=== PATIENT | male | born 1970 | race Caucasian/White ===

== ENCOUNTER 2016-09-20 20:44 | Emergency (ER) | payer BC ==
[2016-09-20 20:52] VITALS: TEMP 98.6
[2016-09-20] MEDS ORDERED: ASPIRIN 81 MG CHEW PO STA (21:27)
--- NOTE | 2016-09-20 21:30 | ED ---
Chest Pain HPI - General Chief Complaint: Chest Pain Stated Complaint: chest discomfort Time Seen by Provider: 09/20/16 21:10 Source: patient Mode of arrival: ambulatory Limitations: no limitations - History of Present Illness Initial Comments: This patient is a 46-year-old man presenting with chest pain as described. The patient states that the pain is been constant and ongoing. It is not exertional , he is able to run and usually goes about 5 miles per day. MD Complaint: chest pain -: week(s) Onset: during rest Pain Location: epigastric Pain Radiation: none Severity: moderate Quality: dull Consistency: constant Improves With: nothing Worsens With: nothing Treatments Prior to Arrival: none - Related Data Home Medications Medication Instructions Recorded Confirmed Atenolol [Tenormin] 12.5 mg PO HS 03/23/16 09/20/16 lamoTRIgine [Lamotrigine] 100 mg PO HS 03/23/16 09/20/16 Previous Rx's Medication Instructions Recorded Famotidine [Pepcid] 20 mg PO DAILY #14 tablet 09/20/16 Allergies Allergy/AdvReac Type Severity Reaction Status Date / Time No Known Allergies Allergy Verified 09/20/16 21:11 Review of Systems ROS Statement: Those systems with pertinent positive or pertinent negative responses have been documented in the HPI. ROS Other: All systems not noted in ROS Statement are negative. Constitutional: Denies: fever, chills Respiratory: Denies: cough Cardiovascular: Reports: chest pain. Denies: palpitations, edema, syncope Gastrointestinal: Denies: abdominal pain, nausea, vomiting, diarrhea Genitourinary: Denies: dysuria, hematuria Musculoskeletal: Denies: back pain Skin: Denies: rash Neurological: Denies: headache, weakness, numbness EKG Findings - EKG Results: EKG: interpreted by AMANDA JIMENEZ, sinus rhythm (Rate 67 bpm), normal axis, normal QRS, normal ST/T, no acute changes Past Medical History Past Medical History: CVA/TIA, GERD/Reflux, Hypertension History of Any Multi-Drug Resistant Organisms: None Reported Past Surgical History: Cholecystectomy Past Anesthesia/Blood Transfusion Reactions: No Reported Reaction Past Psychological History: No Psychological Hx Reported Smoking Status: Never smoker Past Alcohol Use History: Occasional Past Drug Use History: None Reported - Past Family History Mother Family Medical History: No Reported History General Exam Limitations: no limitations General appearance: alert, in no apparent distress Head exam: Present: atraumatic, normocephalic Eye exam: Present: normal appearance. Absent: scleral icterus, conjunctival injection Neck exam: Present: normal inspection, full ROM Respiratory exam: Present: normal lung sounds bilaterally. Absent: respiratory distress, wheezes, rales, rhonchi, stridor Cardiovascular Exam: Present: regular rate, normal rhythm, normal heart sounds. Absent: systolic murmur, diastolic murmur, rubs, gallop GI/Abdominal exam: Present: soft, normal bowel sounds. Absent: distended, tenderness, guarding, rebound, rigid, mass, pulsatile mass, hernia Extremities exam: Present: normal inspection, normal capillary refill. Absent: pedal edema, calf tenderness Back exam: Present: normal inspection. Absent: CVA tenderness (R), CVA tenderness (L) Neurological exam: Present: alert Skin exam: Present: warm, dry, intact, normal color. Absent: rash Course Vital Signs 09/20/16 09/20/16 20:49 22:51 Temperature 98.6 F Pulse Rate 74 80 Respiratory 18 16 Rate Blood Pressure 171/93 160/90 O2 Sat by Pulse 96 98 Oximetry Chest Pain MDM - MDM Discussed appropriate follow-up and further care as well as return parameters. Disposition Clinical Impression: Chest pain, Elevated transaminase level Disposition: HOME SELF-CARE Condition: Good Instructions: Chest Pain (ED) Additional Instructions: As we discussed, follow-up with your doctor regarding the elevated liver tests. Should any of the symptoms we discussed develop return immediately. Prescriptions: Famotidine [Pepcid] 20 mg PO DAILY #14 tablet Referrals: Karolina Valdez DO [REFERRING] - 1-2 days Kel Faulkner MD [STAFF PHYSICIAN] - 1-2 days
[2016-09-20 21:37] LABS: Basophils % (A) 1 %; CH 32.7; Eosinophils # (A) 0.4 k/uL (0-0.7); Eosinophils % (A) 8 %; HCT 45.6 % (39.0-53.0); HDW 2.26; HGB 15.1 gm/dL (13.0-17.5); Luc # (Auto) 0.14; Luc % (Auto) 3; Lymphocytes # (A) 1.5 k/uL (1.0-4.8); Lymphocytes % (A) 32 %; MCHC 33.1 g/dL (31.0-37.0); MCV 96.8 fL (80.0-100.0); Mean Platelet Volume 8.1; Monocytes # (A) 0.4 k/uL (0-1.0); Monocytes % (A) 8 %; Neutrophils # (A) 2.2 k/uL (1.3-7.7); Neutrophils % (A) 48 %; RBC 4.72 m/uL (4.30-5.90); RDW 13.7 % (11.5-15.5); WBC 4.6 k/uL (3.8-10.6); WBC (Perox) 4.13
[2016-09-20 21:41] LABS: ALT 133 U/L (21-72); AST 173 U/L (17-59); Alkaline Phosphatase 145 U/L (38-126); Amylase 100 U/L (30-110); Anion Gap 12 mmol/L; Blood Urea Nitrogen 10 mg/dL (9-20); Calcium 9.5 mg/dL (8.4-10.2); Carbon Dioxide 26 mmol/L (22-30); Chloride 103 mmol/L (98-107); Glucose 99 mg/dL (74-99); Magnesium 1.7 mg/dL (1.6-2.3); Non-African American GFR(MDRD) >60 (>60 ml/min/1.73 sqM); Potassium 3.8 mmol/L (3.5-5.1); Sodium 141 mmol/L (137-145); Total Bilirubin 0.6 mg/dL (0.2-1.3); Total Protein 7.4 g/dL (6.3-8.2)
--- NOTE | 2016-09-20 21:44 | XR ---
EXAMINATION TYPE: XR chest 1V portable DATE OF EXAM: 09/20/2016 9:40 PM COMPARISON: 03/23/2016 HISTORY: Chest pain TECHNIQUE: Single frontal view of the chest is obtained. FINDINGS: Heart and mediastinum are normal. Lungs are clear. Diaphragm is normal. There are no hilar masses. IMPRESSION: Normal chest. No change.
[2016-09-20 21:48] LABS: Creatine Kinase 202 U/L (55-170)
[2016-09-20 21:58] LABS: Prothrombin Time 9.8 sec (9.0-12.0)
[2016-09-20 22:01] LABS: Troponin I <0.012 ng/mL (0.000-0.034)
[2016-09-20 22:53] VITALS: BP 160/90; PULSE 80; RESP 16
[2016-09-21 06:00] LABS: Hepatitis B Surface Ag Index 0.06
[2016-09-21 06:06] LABS: Hepatitis B Core IgM Index 0.04
[2016-09-21 06:18] LABS: Hepatitis C Virus IgG Index 0.02
[2016-09-21 06:19] LABS: Hepatitis C Virus IgG Ab Negative (Negative)
== END 2016-09-20 22:51 | disposition home or self-care (01) ==
LOC: EC 20:44
DX: R07.89 Other chest pain (principal); R74.0 Nonspecific elevation of levels of transaminase and lactic acid dehydrogenase [LDH]; I10 Essential (primary) hypertension; Z79.899 Other long term (current) drug therapy
CPT/HCPCS: 36415; 71010; 80053; 80074; 82150; 82550; 82553; 83690; 83735; 84484; 85025; 85610; 85730; 93005; 99285

== ENCOUNTER 2017-06-15 11:50 | Inpatient (IN) | payer BC ==
[2017-06-15] MEDS ORDERED: SODIUM CHLORIDE 0.9% 1,000 ML IV STA (12:07)
[2017-06-15] MEDS ORDERED: METOCLOPRAMIDE 5 MG/ML 2 ML VIAL IVP STA (12:07)
[2017-06-15] MEDS ORDERED: diphenhydrAMINE 50 MG/ML 1 ML VIAL IVP STA (12:07)
[2017-06-15 12:18] LABS: Glucose,Whole Blood 123 mg/dL (75-99)
--- NOTE | 2017-06-15 12:28 | ED ---
General Adult HPI - General Chief complaint: Headache Stated complaint: headache/ had stroke 5 yrs ago Time Seen by Provider: 06/15/17 12:06 Source: patient, RN notes reviewed Mode of arrival: ambulatory Limitations: no limitations - History of Present Illness Initial comments: 38-year-old male presents for evaluation of headache. Patient complains of gradual onset headache in the bilateral occipital region. Patient does have history of headaches, however he has not had a headache in many years. Previous headache was associated with a CVA. This was approximate 5 years ago. Patient is uncertain what type stroke this was. He does not believe there was a hemorrhagic stroke. He has history of hypertension. States he does use alcohol. Patient denies chest pain or shortness of breath. Denies focal weakness. Headache is dull throbbing in nature. Localized to the occipital region. No changes in vision. No nausea vomiting. - Related Data Home Medications Medication Instructions Recorded Confirmed lamoTRIgine [Lamotrigine] 100 mg PO HS 03/23/16 06/15/17 Allergies Allergy/AdvReac Type Severity Reaction Status Date / Time No Known Allergies Allergy Verified 06/15/17 13:05 Review of Systems ROS Statement: Those systems with pertinent positive or pertinent negative responses have been documented in the HPI. ROS Other: All systems not noted in ROS Statement are negative. Past Medical History Past Medical History: CVA/TIA, GERD/Reflux, Hypertension History of Any Multi-Drug Resistant Organisms: None Reported Past Surgical History: Cholecystectomy Past Anesthesia/Blood Transfusion Reactions: No Reported Reaction Past Psychological History: No Psychological Hx Reported Smoking Status: Never smoker Past Alcohol Use History: Occasional Past Drug Use History: None Reported - Past Family History Mother Family Medical History: No Reported History General Exam Limitations: no limitations General appearance: alert, in no apparent distress Head exam: Present: atraumatic, normocephalic Eye exam: Present: normal appearance, PERRL, EOMI ENT exam: Present: normal exam Neck exam: Present: normal inspection. Absent: tenderness, meningismus Respiratory exam: Present: normal lung sounds bilaterally. Absent: respiratory distress Cardiovascular Exam: Present: regular rate, normal rhythm GI/Abdominal exam: Present: soft. Absent: distended, tenderness Extremities exam: Present: normal inspection, full ROM, normal capillary refill. Absent: pedal edema Neurological exam: Present: alert, CN II-XII intact. Absent: oriented X3 ( Oriented 2), motor sensory deficit Psychiatric exam: Present: normal affect, normal mood Skin exam: Present: warm, dry, intact. Absent: cyanosis, diaphoretic Course Vital Signs 06/15/17 06/15/17 11:56 14:38 Temperature 97.2 F L Pulse Rate 82 79 Respiratory 16 18 Rate Blood Pressure 161/93 117/79 O2 Sat by Pulse 98 98 Oximetry EKG Findings - EKG Comments: EKG Findings:: EKG shows normal sinus rhythm, voltage criteria for LVH, ventricular rate 78, FL interval 170, castration 90, QTC 417, no signs of ischemia Medical Decision Making - Medical Decision Making 46-year-old male presenting with occipital headache. Headache was gradual in onset. Patient reports similar headache associated with CVA approximately 5 years ago. Symptoms began approximately 5 hours prior to arrival. Denies focal weakness. On examination patient has good strength throughout. NIH is 0. no ataxia. Laboratory studies are obtained, white blood cell count 5.1, hemoglobin 14.7, white lites within normal limits, AST and ALT are mildly elevated likely secondary to alcohol abuse, alcohol level is 75. CT shows subcortical acute versus subacute infarction. Case discussed with Dr. Page , he will accept admission. Neurology has been paged awaiting recommendations. Patient given aspirin in the emergency department via started on daily aspirin. Carotid duplex and echo will be obtained. - Lab Data Result diagrams: 06/15/17 12:30 06/15/17 12:30 Lab Results 06/15/17 06/15/17 06/15/17 Range/Units 12:15 12:30 12:30 WBC 5.1 (3.8-10.6) k/uL RBC 4.66 (4.30-5.90) m/uL Hgb 14.7 (13.0-17.5) gm/dL Hct 44.3 (39.0-53.0) % MCV 95.1 (80.0-100.0) fL MCH 31.5 (25.0-35.0) pg MCHC 33.2 (31.0-37.0) g/dL RDW 13.5 (11.5-15.5) % Plt Count 171 (150-450) k/uL Neutrophils % 66 % Lymphocytes % 23 % Monocytes % 7 % Eosinophils % 1 % Basophils % 1 % Neutrophils # 3.4 (1.3-7.7) k/uL Lymphocytes # 1.2 (1.0-4.8) k/uL Monocytes # 0.4 (0-1.0) k/uL Eosinophils # 0.1 (0-0.7) k/uL Basophils # 0.0 (0-0.2) k/uL PT (9.0-12.0) sec INR (<1.2) APTT (22.0-30.0) sec Sodium 140 (137-145) mmol/L Potassium 3.7 (3.5-5.1) mmol/L Chloride 102 (98-107) mmol/L Carbon Dioxide 23 (22-30) mmol/L Anion Gap 15 mmol/L BUN 13 (9-20) mg/dL Creatinine 0.89 (0.66-1.25) mg/dL Est GFR (MDRD) Af Amer >60 (>60 ml/min/1.73 sqM) Est GFR (MDRD) Non-Af >60 (>60 ml/min/1.73 sqM) Glucose 118 H (74-99) mg/dL POC Glucose (mg/dL) 123 H (75-99) mg/dL POC Glu Employer Relations Representative ID Bjorn Shau Calcium 10.0 (8.4-10.2) mg/dL Total Bilirubin 0.7 (0.2-1.3) mg/dL AST 182 H (17-59) U/L ALT 161 H (21-72) U/L Alkaline Phosphatase 106 (38-126) U/L Total Protein 7.7 (6.3-8.2) g/dL Albumin 4.6 (3.5-5.0) g/dL Serum Alcohol 75 mg/dL 06/15/17 Range/Units 12:30 WBC (3.8-10.6) k/uL RBC (4.30-5.90) m/uL Hgb (13.0-17.5) gm/dL Hct (39.0-53.0) % MCV (80.0-100.0) fL MCH (25.0-35.0) pg MCHC (31.0-37.0) g/dL RDW (11.5-15.5) % Plt Count (150-450) k/uL Neutrophils % % Lymphocytes % % Monocytes % % Eosinophils % % Basophils % % Neutrophils # (1.3-7.7) k/uL Lymphocytes # (1.0-4.8) k/uL Monocytes # (0-1.0) k/uL Eosinophils # (0-0.7) k/uL Basophils # (0-0.2) k/uL PT 9.9 (9.0-12.0) sec INR 1.0 (<1.2) APTT 23.3 (22.0-30.0) sec Sodium (137-145) mmol/L Potassium (3.5-5.1) mmol/L Chloride (98-107) mmol/L Carbon Dioxide (22-30) mmol/L Anion Gap mmol/L BUN (9-20) mg/dL Creatinine (0.66-1.25) mg/dL Est GFR (MDRD) Af Amer (>60 ml/min/1.73 sqM) Est GFR (MDRD) Non-Af (>60 ml/min/1.73 sqM) Glucose (74-99) mg/dL POC Glucose (mg/dL) (75-99) mg/dL POC Glu Employer Relations Representative ID Calcium (8.4-10.2) mg/dL Total Bilirubin (0.2-1.3) mg/dL AST (17-59) U/L ALT (21-72) U/L Alkaline Phosphatase (38-126) U/L Total Protein (6.3-8.2) g/dL Albumin (3.5-5.0) g/dL Serum Alcohol mg/dL Critical Care Time Critical Care Time: Yes Total Critical Care Time: 35 Disposition Clinical Impression: Headache, CVA (cerebral vascular accident) Disposition: ADMITTED IP TO THIS [facility] Condition: Stable Referrals: None,Stated [Primary Care Provider] - 1-2 days Decision to Admit Reason: Admit from EC Decision Date: 06/15/17 Decision Time: 14:47
[2017-06-15 12:51] LABS: Basophils % (A) 1 %; Eosinophils # (A) 0.1 k/uL (0-0.7); Eosinophils % (A) 1 %; HCT 44.3 % (39.0-53.0); HGB 14.7 gm/dL (13.0-17.5); Lymphocytes # (A) 1.2 k/uL (1.0-4.8); Lymphocytes % (A) 23 %; MCH 31.5 pg (25.0-35.0); MCHC 33.2 g/dL (31.0-37.0); MCV 95.1 fL (80.0-100.0); Mean Platelet Volume 8.5; Monocytes # (A) 0.4 k/uL (0-1.0); Monocytes % (A) 7 %; Neutrophils # (A) 3.4 k/uL (1.3-7.7); Neutrophils % (A) 66 %; Platelet Count 171 k/uL (150-450); RBC 4.66 m/uL (4.30-5.90); RDW 13.5 % (11.5-15.5); WBC 5.1 k/uL (3.8-10.6)
--- NOTE | 2017-06-15 12:59 | CT ---
EXAMINATION TYPE: CT brain wo con DATE OF EXAM: 06/15/2017 COMPARISON: MRI brain 06/24/2011 INDICATION: Right sided posterior headache today. history of CVA DLP: 1108.4 mGycm, Automated exposure control for dose reduction was used. CONTRAST: None CT of the brain is performed utilizing 3 mm thick sections through the posterior fossa and 3 mm thick sections through the remaining calvarium. Study is performed within 24 hours of arrival to the hosp ital. No abnormal hyperdensity is present to suggest an acute intracranial hemorrhage. No mass lesion is evident. No acute infarcts are evident. There are scattered areas of subcortical white matter hypodensity. Thi s could be on the basis of microvascular ischemic changes. Other etiologies should be considered. Thi s is more focal in the left parietal-occipital region. Consider MRI with contrast for additional eval uation. Ventricles and sulci are appropriate for the patient age. Paranasal sinuses and mastoid air cells within the [id number] are clear. In comparison to the previous MRI, the white matter changes are in new locations from 2012. IMPRESSIONS: 1. Subcortical white matter changes which are nonspecific. Acute or subacute ischemic areas could b e considered. Chronic white matter ischemic change be within the differential. Consider MRI for addit ional evaluation.
[2017-06-15 13:02] LABS: Partial Thromboplastin Time 23.3 sec (22.0-30.0); Prothrombin Time 9.9 sec (9.0-12.0)
[2017-06-15 13:04] LABS: ALT 161 U/L (21-72); AST 182 U/L (17-59); Albumin 4.6 g/dL (3.5-5.0); Alcohol 75 mg/dL; Alkaline Phosphatase 106 U/L (38-126); Anion Gap 15 mmol/L; Blood Urea Nitrogen 13 mg/dL (9-20); Carbon Dioxide 23 mmol/L (22-30); Chloride 102 mmol/L (98-107); Glucose 118 mg/dL (74-99); Potassium 3.7 mmol/L (3.5-5.1); Sodium 140 mmol/L (137-145); Total Bilirubin 0.7 mg/dL (0.2-1.3); Total Protein 7.7 g/dL (6.3-8.2)
[2017-06-15] MEDS ORDERED: ASPIRIN 325 MG TAB PO STA (13:36)
[2017-06-15] MEDS ORDERED: THIAMINE 100 MG/ML 2 ML VIAL IM STA (14:36)
[2017-06-15] MEDS ORDERED: LORazepam 2 MG/ML INJ IV PRN ×3 (14:36)
--- NOTE | 2017-06-15 15:58 | US ---
EXAMINATION TYPE: US carotid duplex BILAT DATE OF EXAM: 06/15/2017 COMPARISON: NONE CLINICAL HISTORY: Stenosis. Patient stated has severe headache and is going through alcohol withdrawa l;TIA 5 years prior per patient. EXAM MEASUREMENTS: RIGHT: Peak Systolic Velocity (PSV) cm/sec ----- Right CCA: 82.3 ----- Right ICA: 80.9 ----- Right ECA: 97.3 ICA/CCA ratio: 1.0 RIGHT: End Diastole cm/sec ----- Right CCA: 20.2 ----- Right ICA: 17.1 ----- Right ECA: 18.0 LEFT: Peak Systolic Velocity (PSV) cm/sec ----- Left CCA: 66.8 ----- Left ICA: 45.9 ----- Left ECA: 69.6 ICA/CCA ratio: 0.7 LEFT: End Diastole cm/sec ----- Left CCA: 11.0 ----- Left ICA: 0.0 ----- Left ECA: 8.7 VERTEBRALS (direction of flow): Right Vertebral: Antegrade Left Vertebral: Antegrade Rhythm: Normal Mild to moderate wall plaque is noted at bilateral carotid bifurcation with Right side > Left side, b ut PSV is wnl bilaterally. IMPRESSION: 1. Mild to moderate plaque noted bilaterally with no significant hemodynamic stenosis.
--- NOTE | 2017-06-15 16:31 | MR ---
EXAMINATION TYPE: MR brain wo con DATE OF EXAM: 06/15/2017 COMPARISON: CT brain same date, MRI brain 01/05/2011 HISTORY: Headache, hx stroke CONTRAST: Performed utilizing 0 mL intravenous Gadavist gadolinium contrast. TECHNIQUE: Multiplanar, multiecho imaging on a 3.0 Neva magnet is performed through the brain. Stud y is performed within 24 hours of arrival to the hospital. The craniovertebral junction is normal. The pituitary is normal. Diffusion-weighted imaging is performed. No abnormal hyperintensity is present to suggest an acute i ntracranial infarct or acute ischemic change. There is hyperintensity within the subcortical white matter corresponding to the CT findings. No hype rintensities evident on the diffusion weighted imaging in this location suggesting this is old. There are multiple additional punctate subcortical white matter changes. Differential diagnosis should inc lude multiple sclerosis within the differential. Lyme disease and vasculitis could be considered. Fi ndings are somewhat progressive from 2010. Ventricles and sulci are appropriate for the patient age. IMPRESSIONS: 1. Extensive punctate and small focal areas of hyperintensity in the subcortical white matter without corresponding acute changes on diffusion are chronic. This is somewhat progressive from 2010. Differ ential diagnosis could include microvascular ischemic change and multiple sclerosis. Other etiologies would include Lyme disease and vasculitis. 2. No acute focal ischemic area is identified. 3. The focal subcortical white matter change in the left parietal-occipital region corresponds to the abnormality identified on CT examination and appears chronic.
--- NOTE | 2017-06-15 17:24 | ECHOF ---
Referral Reason:Thrombus MEASUREMENTS -------- HEIGHT: 180.3 cm WEIGHT: 81.6 kg BP: 117/79 RVIDd: 3.1 cm (< 3.3) IVSd: 1.1 cm (0.6 - 1.1) LVIDd: 4.8 cm (3.9 - 5.3) LVPWd: 1.3 cm (0.6 - 1.1) IVSs: 1.6 cm LVIDs: 3.2 cm LVPWs: 1.7 cm LAESV Index (A-L): 24.89 ml/m Ao Diam: 3.6 cm (2.0 - 3.7) AV Cusp: 1.6 cm (1.5 - 2.6) LA Diam: 2.9 cm (2.7 - 3.8) MV EXCURSION: 18.221 mm (> 18.000) MV EF SLOPE: 111 mm/s (70 - 150) EPSS: 0.5 cm MV E Nirav: 0.78 m/s MV DecT: 200 ms MV A Nirav: 0.55 m/s MV E/A Ratio: 1.41 RAP: 5.00 mmHg RVSP: 12.14 mmHg FINDINGS -------- Sinus rhythm. This was a technically adequate study. The left ventricular size is normal. Left ventricular wall thickness is normal. Overall left vent ricular systolic function is normal with, an EF between 60 - 65 %. The right ventricle is normal in size and function. Normal LA size by volume 22+/-6 ml/m2. The right atrium is normal in size. Aortic valve is trileaflet and is mildly thickened. There is no evidence of aortic regurgitation. There is no evidence of aortic stenosis. The mitral valve leaflets are mildly thickened. There is trace mitral regurgitation. Trace tricuspid regurgitation present. Right ventricular systolic pressure is normal at < 35 mmHg. There is no evidence of pulmonary hypertension. Trace/mild (physiologic) pulmonic regurgitation. The aortic root size is normal. Normal inferior vena cava with normal inspiratory collapse consistent with estimated right atrial pre ssure of 5 mmHg. The pericardium is normal. There is no pericardial effusion. CONCLUSIONS -------- 1. Sinus rhythm. 2. This was a technically adequate study. 3. The left ventricular size is normal. 4. Left ventricular wall thickness is normal. 5. Overall left ventricular systolic function is normal with, an EF between 60 - 65 %. 6. Normal LA size by volume 22+/-6 ml/m2. 7. Aortic valve is trileaflet and is mildly thickened. 8. The mitral valve leaflets are mildly thickened. 9. There is trace mitral regurgitation. 10. Trace tricuspid regurgitation present. 11. Right ventricular systolic pressure is normal at < 35 mmHg. 12. There is no evidence of pulmonary hypertension. 13. Trace/mild (physiologic) pulmonic regurgitation. 14. The aortic root size is normal. 15. There is no pericardial effusion. AUTOMATIC VULCANIZING OPERATOR: Tam Gonzalez RDCS
[2017-06-15] MEDS: THIAMINE 100 MG TAB PO SCH (18:12)
--- NOTE | 2017-06-15 19:04 | P.CNNES ---
History of Present Illness Consult date: 06/15/17 Reason for Consult: Patient being evaluated for acute versus subacute stroke. History of Present Illness: This patient is a 46-year-old right-handed white male who was in his usual state of health until early today. He was at work at [employer] and developed symptoms of headache and just not feeling well. 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 Patient has a history of having suffered a stroke about 5 years ago. His stroke began similarly with symptoms of headache. He is unable to provide details of his previous stroke 5 years ago but states he did have a headache at the time. Patient was brought into the emergency room for further evaluation today. He was seen in the ER by Dr. Hedrick. He denied any focal weakness but does describe a posterior occipital area headache that was kind of throbbing in nature. The patient denied any fever or chills. He was sent for a computed tomography scan of the brain which reveals subcortical white matter changes. There was an area of acute versus subacute ischemic area noted over the left parieto-occipital region. Given this finding there was concern for new or recurrent stroke. It was recommended he should have an MRI of the brain done as soon as possible from the ER. The patient was sent for MRI which was completed. The MRI failed to reveal any evidence of acute stroke on diffusion- weighted imaging. Extensive white matter changes were noted. This is felt to be microvascular ischemic changes. No evidence of acute or focal ischemia was identified. The focal subcortical white matter changes over the left parieto- occipital region appear to be chronic in nature. Patient denies any symptoms of demyelinating disease such as diplopia paresthesias or recurrent weakness. As noted his MRI just revealed severe white matter ischemic changes. We have recommended the patient undergo a complete stroke evaluation. Apparently he does have stroke risk factors which include hypercholesterolemia and alcohol use. The patient has a history of alcohol abuse. Apparently his alcohol level in the ER was 75. He has been started on a CIWA protocol. The patient does have mild symptoms of anxiety related to his alcohol use. We will need to monitor him closely for alcohol withdrawal. The patient is now admitted and neurology has been consulted for further evaluation and recommendations. Review of Systems Constitutional: Denies chills, Denies fever Eyes: denies blurred vision, denies pain Ears, nose, mouth and throat: Denies headache, Denies sore throat Cardiovascular: Denies chest pain, Denies shortness of breath Respiratory: Denies cough Gastrointestinal: Denies abdominal pain, Denies diarrhea, Denies nausea, Denies vomiting Musculoskeletal: Denies myalgias Integumentary: Denies pruritus, Denies rash Neurological: Reports headaches, Reports paresthesias, Denies numbness, Denies weakness Psychiatric: Denies anxiety, Denies depression Endocrine: Denies fatigue, Denies weight change Past Medical History Past Medical History: CVA/TIA, GERD/Reflux, Hypertension History of Any Multi-Drug Resistant Organisms: None Reported Past Surgical History: Cholecystectomy Past Anesthesia/Blood Transfusion Reactions: No Reported Reaction Past Psychological History: No Psychological Hx Reported Smoking Status: Never smoker Past Alcohol Use History: Occasional Past Drug Use History: None Reported - Past Family History Mother Family Medical History: No Reported History Medications and Allergies Home Medications Medication Instructions Recorded Confirmed Type lamoTRIgine [Lamotrigine] 100 mg PO HS 03/23/16 06/15/17 History Allergies Allergy/AdvReac Type Severity Reaction Status Date / Time No Known Allergies Allergy Verified 06/15/17 13:05 Physical Examination - Vital Signs Vital Signs: Vital Signs Temp Pulse Pulse Resp BP BP Pulse Ox 06/15/17 16:56 97.7 F 68 20 140/80 98 06/15/17 16:54 98.2 F 79 18 134/69 06/15/17 14:38 79 18 117/79 98 06/15/17 11:56 97.2 F L 82 16 161/93 98 Intake and Output 06/15/17 06/15/17 06/15/17 06:59 14:59 22:59 Other: Weight 81.647 kg Patient Weight 06/16/17 06:59 Weight 81.647 kg - Constitutional General appearance: average body habitus, cooperative - EENT EENT: PERRL, mucous membranes moist - Respiratory Respiratory: lungs clear, normal breath sounds - Cardiovascular Cardiovascular: regular rate, normal S1, normal S2 Extremities: no peripheral edema bilaterally - Gastrointestinal Gastrointestinal: normoactive bowel sounds - Integumentary Integumentary: normal - Neurologic Cranial nerve examination: PERRL, EOMI, VFF, V1/V2/V3 grossly intact, face symmetric, tongue midline, intact gag reflex, intact corneal reflex, normal palatal elevation Speech examination: intact Sensorimotor examination: intact Detailed motor examination: grossly full strength in all extremities Motor examination - right side: 4/5: biceps, triceps, wrist flexion, wrist extension, 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, hip flexors, knee extensors, dorsiflexion, toe extension (EHL) , plantarflexion Motor examination - left side: 4/5: biceps, triceps, wrist flexion, wrist extension, 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, hip flexors, knee extensors, dorsiflexion, toe extension (EHL) , plantarflexion Detailed sensory examination: intact Reflex and gait examination: intact Reflexes: 1+: ankle, bicep, knee, tricep - Musculoskeletal Musculoskeletal: no pain - Psychiatric Psychiatric: mood/affect appropriate, cooperative Results - Laboratory Findings CBC and BMP: 06/15/17 12:30 06/15/17 12:30 Abnormal Lab Findings: Abnormal Labs 06/15/17 06/15/17 12:15 12:30 Glucose 118 H POC Glucose (mg/dL) 123 H AST 182 H ALT 161 H Assessment and Plan (1) CVA (cerebral vascular accident) Current Visit: Yes Status: Acute Code(s): I63.9 - CEREBRAL INFARCTION, UNSPECIFIED SNOMED Code(s): 709984308 (2) Encephalopathy Current Visit: Yes Status: Acute Code(s): G93.40 - ENCEPHALOPATHY, UNSPECIFIED SNOMED Code(s): 79158990 (3) Headache Current Visit: Yes Status: Acute Code(s): R51 - HEADACHE SNOMED Code(s): 01444363 (4) Alcohol abuse Current Visit: Yes Status: Acute Code(s): F10.10 - ALCOHOL ABUSE, UNCOMPLICATED SNOMED Code(s): 71233078 Plan: This patient is a 46-year-old male admitted to Hospital with symptoms of headache and previous history of stroke 5 years ago. He was at work at [employer] and just did not feel well. He was brought into the emergency room at [facility] and was seen by Dr. Hedrick. He was sent for a computed tomography scan of the brain which revealed a acute versus subacute area of ischemia involving the left parieto-occipital lobe. He was recommended admission for her. Stroke evaluation. He completed his MRI of the brain today the results which are noted above. There is no evidence for acute focal ischemia on diffusion-weighted imaging. The patient is to undergo full stroke evaluation. We would recommend that he should be placed on aspirin 325 mg daily for secondary stroke prevention. He has a history of alcohol abuse as his alcohol level was elevated at 75 on admission. He is to be placed on a [facility] protocol for further management of alcohol withdrawal. We would recommend to check his serum cholesterol level. Apparently it has been elevated in the past. Recommend PTOT and speech therapy evaluation. We would await the results of his stroke workup and further recommendations will be given at that time. His overall prognosis at this time remains very guarded. Time with Patient: Greater than 30
[2017-06-15] MEDS: lamoTRIgine 100 MG TAB PO SCH (22:01)
[2017-06-16] MEDS: SODIUM CHLORIDE 0.9% 1,000 ML IV SCH ×2 (00:35→13:00)
--- NOTE | 2017-06-16 04:26 | HP ---
HISTORY AND PHYSICAL CHIEF COMPLAINT: A 46-year-old white male with posterior cervical headache versus stroke. HISTORY OF PRESENT ILLNESS: This 46-year-old came in with headache in the back of his head, similar to prior stroke he had 5 years ago. He came to the hospital due to severe significant headache in the back of his head. MRI was ordered. Carotid neck was ordered. MRI shows no acute stroke, but microvascular ischemic changes. Carotid and echo have been ordered. REVIEW OF SYSTEMS: Fourteen-point review of systems negative except for as mentioned in HPI. PAST MEDICAL HISTORY: CVA, TIA, GERD reflux, hypertension. SURGICAL HISTORY: Cholecystectomy. FAMILY HISTORY: Mother negative. HOME MEDICATIONS: Lamictal 100 q.h.s. ALLERGIES: Negative. PHYSICAL EXAMINATION: Blood pressure is 117 to 160s over 60s to 90s, temp 97 to 98, pulse 60s to 70s, O2 of 98%. CARDIOVASCULAR: S1, S2. LUNGS: Transmitted upper airway sounds. GI: Soft. HEMATOLOGY: Negative Homans. PSYCH: Fair mood and affect. OPHTHALMOLOGICAL: Pupils equal, round, react to light and accommodation. NEUROLOGIC: Alert and orient x3. LABS: MRI and echo are appreciated. Neurology consult is appreciated. ASSESSMENT: 1. Cerebrovascular accident until ruled out. 2. Encephalopathy. 3. Headache. 4. Alcohol abuse. Aspirin 325 daily. Alcohol abuse, alcohol withdrawal, [place] protocol. PT, OT, speech evaluation. Prognosis guarded. Awaiting cardiology and Neurology to come up with a treatment plan for the patient. MMODL / IJN: [id number] /
[2017-06-16] MEDS: ASPIRIN 325 MG TAB PO SCH (09:06)
[2017-06-16] MEDS: THIAMINE 100 MG TAB PO SCH ×2 (09:06→17:35)
[2017-06-16 13:04] VITALS: RESP 16
[2017-06-16 15:31] LABS: Hemoglobin A1C 5.4 % (4.0-6.0)
--- NOTE | 2017-06-16 16:40 | P.PN ---
Subjective Progress Note Date: 06/16/17 This patient is a 46-year-old male who was admitted hospital with evidence of headache and previous history of stroke 5 years ago. He was seen in the emergency room and underwent a computed tomography scan of the brain which revealed questionable subacute versus acute stroke. He is a plan when MRI of the brain which failed to reveal any evidence of acute stroke and was completed yesterday. He underwent a carotid Doppler study today which came back negative with no evidence of carotid artery stenosis. His echocardiogram results also came back good with an ejection fraction of 60-65%. Patient is being treated for alcohol withdrawal syndrome. He is currently on a CIWA protocol. He is to continue on aspirin daily for secondary stroke prevention. We did review all of this test results with him today in detail. The patient has responded well to the CIWA protocol. He is not showing any signs of alcohol withdrawal at this time. He is resting comfortably in bed this afternoon. He is anticipating possible discharge home tomorrow. Would increase his activity and hopefully will be able to be discharged home soon. Objective - Vital Signs Vital signs: Vital Signs Temp 98.5 F 06/16/17 12:00 Pulse 76 06/16/17 12:00 Resp 16 06/16/17 12:00 BP 131/78 06/16/17 12:00 Pulse Ox 96 06/16/17 12:00 Intake & Output 06/15/17 06/16/17 06/16/17 18:59 06:59 18:59 Intake Total 420 Output Total 0 Balance 420 Weight 81.647 kg 83.7 kg Intake: Oral 420 Output: Urine 0 Other: Voiding Method Toilet Toilet Toilet # Voids 2 - Exam Physical examination: PHYSICAL EXAMINATION: Patient is resting comfortably in bed. VITAL SIGNS: Blood pressure is [131/78]. Heart rate is [76]. Respiration is [16] . Temperature is [98.5]. HEENT: Head is atraumatic, neck is supple, there were no carotid bruits. CHEST: Lungs are clear to auscultation and percussion. CARDIAC: S1, S2 normal rate and rhythm. There is no murmur. ABDOMEN: Soft and nontender. Bowel sounds are present. EXTREMITIES: There is no pedal edema. Peripheral pulses are present. Neurological examination: Patient has a nonfocal neurological exam. Patient has no evidence of tremors or signs of alcohol withdrawal today on exam. - Labs CBC & Chem 7: 06/15/17 12:30 06/15/17 12:30 Labs: Abnormal Lab Results - Last 24 Hours (Table) 06/16/17 Range/Units 05:28 Cholesterol 236 H (<200) mg/dL HDL Cholesterol 126 H (40-60) mg/dL Assessment and Plan (1) CVA (cerebral vascular accident) Current Visit: Yes Status: Acute Code(s): I63.9 - CEREBRAL INFARCTION, UNSPECIFIED SNOMED Code(s): 441986986 (2) Encephalopathy Current Visit: Yes Status: Acute Code(s): G93.40 - ENCEPHALOPATHY, UNSPECIFIED SNOMED Code(s): 49268974 (3) Headache Current Visit: Yes Status: Acute Code(s): R51 - HEADACHE SNOMED Code(s): 06082496 (4) Alcohol abuse Current Visit: Yes Status: Acute Code(s): F10.10 - ALCOHOL ABUSE, UNCOMPLICATED SNOMED Code(s): 52928514 Plan: This patient is a 46-year-old male admitted to Hospital with symptoms of headache and previous history of stroke 5 years ago. He was at work at [employer] and just did not feel well. He was brought into the emergency room at [facility] and was seen by Dr. Hedrick. He was sent for a computed tomography scan of the brain which revealed a acute versus subacute area of ischemia involving the left parieto-occipital lobe. He was recommended admission for stroke evaluation. He completed his MRI of the brain yesterday the results which are noted above. His MRI failed to reveal any evidence of acute stroke. There is evidence of old residual changes. There is no evidence for acute focal ischemia on diffusion-weighted imaging. The patient is to undergo full stroke evaluation. We would recommend that he should be placed on aspirin 325 mg daily for secondary stroke prevention. He has a history of alcohol abuse as his alcohol level was elevated at 75 on admission. He is to be placed on a [facility] protocol for further management of alcohol withdrawal. He has responded well to this CIWA protocol. He has had no evidence of alcohol withdrawal at this time. Recommend PT/OT and speech therapy evaluation. Patient underwent carotid Doppler and echocardiogram studies today. Both of these studies have come back normal. He is to continue on aspirin therapy at this time and possibly be considered for discharge home tomorrow. We will continue close neurological follow-up with the patient.
[2017-06-16] MEDS: ATENOLOL 12.5 MG TAB PO SCH (19:39)
[2017-06-16] MEDS: lamoTRIgine 100 MG TAB PO SCH (19:39)
--- NOTE | 2017-06-16 22:33 | PN ---
PROGRESS NOTE CHIEF COMPLAINT: 46-year-old white male was admitted with headache and previous stroke 5 years ago. MRI did not show any stroke. Echo showed no good ejection fraction. He is being treated for alcohol withdrawal. He is on CIID protocol. Possible discharge home tomorrow. Cardiovascular S1, S2. Lungs clear. GI soft. Hematology negative Homans. Psych: Far mood and affect. ASSESSMENT: 1. Alcohol withdrawal. 2. Cephalgia, headache, unclear etiology, possible alcohol withdrawal related. 3. Stroke was ruled. 4. Discharge home in the morning. MMODL / IJN: [id number] /
[2017-06-17] MEDS: THIAMINE 100 MG TAB PO SCH (09:02)
[2017-06-17] MEDS: ASPIRIN 325 MG TAB PO SCH (09:02)
[2017-06-17] MEDS: ATENOLOL 12.5 MG TAB PO SCH (09:02)
[2017-06-17 09:53] VITALS: BP 142/82; PULSE 81; TEMP 98.6
--- NOTE | 2017-06-17 23:19 | EEG ---
ELECTROENCEPHALOGRAM REPORT DATE OF EE06/16/2017. REFERRING PHYSICIAN: Dr. Ameya Page. INTERPRETING PHYSICIAN: Dr. Carmenza Wall. INDICATION FOR EXAMINATION: This patient is a 46-year-old male being evaluated for TIA versus stroke. AGE: 46. EEG FINDINGS: A routine 21-channel awake digital EEG recording was accomplished utilizing the 10-20 international system with bipolar and referential montages. The background activity in the most alert resting state consists of a low to medium amplitude, fairly well- developed well-sustained 8 Hz activity over the posterior head region. This posterior rhythm attenuates to eye opening. There is a small amount of low amplitude 18-20 Hz beta activity seen maximally over the anterior head regions. Muscle and movement artifact was observed on a few occasions during the tracing. Hyperventilation was not performed. Photic stimulation at flash frequencies of 2-30 Hz produced a minimal occipital driving response. No epileptiform discharges were seen. IMPRESSION: This EEG is within normal limits for the patient's age. The EEG failed to reveal any focal, lateralized or epileptiform abnormalities. Clinical correlation is recommended. MMODL / IJN: [id number] /
--- NOTE | 2017-07-05 08:43 | DS ---
DISCHARGE SUMMARY DATE OF ADMISSION: 06/15/2017. DATE OF DISCHARGE: 06/17/2017. DISCHARGE MEDICATIONS: 1. Lamictal 100 mg q.h.s. 2. Atorvastatin 10 mg daily. CONDITION: Stable. PROGNOSIS: Guarded. Ambulate as tolerated. The patient was admitted for possible seizure. He had a headache, a history of a stroke 5 years ago. MRI was done which showed no significant injury to the brain, history with alcohol withdrawal symptoms. [facility] protocol. He is cleared by Neurology for discharge to follow up as an outpatient. MMODL / IJN: [id number] /
== END 2017-06-17 12:02 | disposition home or self-care (01) | DRG 103 ==
LOC: EC 11:50 → 6SEL 14:39
PROVIDERS: ADMIT Family Medicine; ATTEND Family Medicine
DX: R51 Headache (principal); E78.00 Pure hypercholesterolemia, unspecified; F10.239 Alcohol dependence with withdrawal, unspecified; I10 Essential (primary) hypertension; K21.9 Gastro-esophageal reflux disease without esophagitis; Z86.73 Personal history of transient ischemic attack (TIA), and cerebral infarction without residual deficits; Z79.899 Other long term (current) drug therapy; Z90.49 Acquired absence of other specified parts of digestive tract
CPT/HCPCS: 36415; 70450; 70551; 80053; 80061; 80320; 83036; 84443; 85025; 85610; 85730; 93005; 93306; 93880; 95819; 96361; 96374; 96375; 99285

== ENCOUNTER 2017-08-25 15:59 | Emergency (ER) | payer BC ==
[2017-08-25 16:08] VITALS: BP 159/82; PULSE 71; RESP 18; TEMP 98.7
--- NOTE | 2017-08-25 16:57 | ED ---
General Adult HPI - General Chief complaint: Alcohol Stated complaint: Withdrawls Time Seen by Provider: 08/25/17 16:43 Source: patient, RN notes reviewed Mode of arrival: ambulatory Limitations: no limitations - History of Present Illness Initial comments: Patient is a pleasant 47-year-old male presenting to the emergency department with concerns for alcohol problems. Patient does drink alcohol frequently. Patient stopped drinking yesterday however did have one drink around 1:00 today to help with shaking and withdrawal. Patient did try to stop drinking once previously for 3 days and then started up again. Patient does not feel too shaky at this time. No suicidal or homicidal thoughts. No other concerns. - Related Data Home Medications Medication Instructions Recorded Confirmed lamoTRIgine [Lamotrigine] 100 mg PO HS 03/23/16 06/15/17 Atorvastatin [Lipitor] 10 mg PO DAILY 06/17/17 06/17/17 Previous Rx's Medication Instructions Recorded LORazepam [Ativan] 1 mg PO TID PRN #8 tab 08/25/17 Allergies Allergy/AdvReac Type Severity Reaction Status Date / Time No Known Allergies Allergy Verified 08/25/17 16:50 Review of Systems ROS Statement: Those systems with pertinent positive or pertinent negative responses have been documented in the HPI. Constitutional: Denies: fever Eyes: Denies: eye pain ENT: Denies: throat pain Respiratory: Denies: cough Cardiovascular: Denies: chest pain Endocrine: Denies: fatigue Gastrointestinal: Denies: abdominal pain Genitourinary: Denies: dysuria Musculoskeletal: Denies: back pain Skin: Denies: rash Neurological: Denies: weakness Past Medical History Past Medical History: CVA/TIA, GERD/Reflux, Hypertension Additional Past Medical History / Comment(s): stroke 5 years ago, short term memory loss, tremors History of Any Multi-Drug Resistant Organisms: None Reported Past Surgical History: Cholecystectomy Past Anesthesia/Blood Transfusion Reactions: No Reported Reaction Past Psychological History: No Psychological Hx Reported Smoking Status: Never smoker Past Alcohol Use History: Abuse, Daily, Heavy - Past Family History Mother Family Medical History: No Reported History Additional Family Medical History / Comment(s): healthy Father Family Medical History: CVA/TIA Additional Family Medical History / Comment(s): age 55 from stroke General Exam Limitations: no limitations General appearance: alert, in no apparent distress Head exam: Present: atraumatic, normocephalic Eye exam: Present: normal appearance, PERRL, EOMI. Absent: nystagmus ENT exam: Present: normal oropharynx Neck exam: Present: normal inspection Respiratory exam: Present: normal lung sounds bilaterally Cardiovascular Exam: Present: regular rate, normal rhythm Extremities exam: Present: normal inspection Neurological exam: Present: alert Psychiatric exam: Present: normal affect, normal mood Skin exam: Present: normal color Course Vital Signs 08/25/17 16:04 Temperature 98.7 F Pulse Rate 71 Respiratory 18 Rate Blood Pressure 159/82 O2 Sat by Pulse 99 Oximetry Disposition Clinical Impression: Alcohol withdrawal Disposition: HOME SELF-CARE Condition: Stable Instructions: Alcohol Withdrawal (ED) Additional Instructions: Please follow-up with primary care physician in the next day or 2 for recheck. Return for change in mental status, seizures, worsening or changing symptoms or other concerns. Discontinue alcohol use. Please follow-up with alcohol withdrawal facility or alcoholic anonymous or counselor, list provided. Prescriptions: LORazepam [Ativan] 1 mg PO TID PRN #8 tab PRN Reason: Anxiety Referrals: Ameya Page MD [Primary Care Provider] - 1-2 days Time of Disposition: 16:57
== END 2017-08-25 17:06 | disposition home or self-care (01) ==
LOC: EC 15:59
DX: F10.239 Alcohol dependence with withdrawal, unspecified (principal); Z79.899 Other long term (current) drug therapy
CPT/HCPCS: 99284

== ENCOUNTER → 2020-11-14 | Outpatient (CLI) | payer BC ==
--- NOTE | 2020-11-14 11:38 | ECHOF ---
Referral Reason:Chest pain R07.9 MEASUREMENTS -------- HEIGHT: 180.3 cm WEIGHT: 72.6 kg BP: RVIDd: 2.5 cm (< 3.3) IVSd: 0.9 cm (0.6 - 1.1) LVIDd: 3.9 cm (3.9 - 5.3) LVPWd: 1.1 cm (0.6 - 1.1) IVSs: 1.7 cm LVIDs: 3.1 cm LVPWs: 1.4 cm LAESV Index (A-L): 24.23 ml/m Ao Diam: 3.2 cm (2.0 - 3.7) AV Cusp: 2.3 cm (1.5 - 2.6) LA Diam: 2.7 cm (2.7 - 3.8) MV EXCURSION: 23.948 mm (> 18.000) MV EF SLOPE: 171 mm/s (70 - 150) EPSS: 0.2 cm MV E Nirav: 0.62 m/s MV DecT: 196 ms MV A Nirav: 0.86 m/s MV E/A Ratio: 0.71 RAP: 5.00 mmHg RVSP: 18.96 mmHg FINDINGS -------- This was a technically good study. The left ventricular size is normal. Left ventricular wall thickness is normal. Overall left vent ricular systolic function is normal with, an EF between 55 - 60 %. The diastolic filling pattern is normal for the age of the patient 7.99. The right ventricle is normal in size. The left atrial size is normal. Normal LA size by volume 22+/-6 ml/m2. The right atrial size is normal. Interatrial and interventricular septum intact. The aortic valve is trileaflet and appears structurally normal. The mitral valve is normal. There is trace mitral regurgitation. The tricuspid valve appears structurally normal. Trace tricuspid regurgitation present. Right rehana tricular systolic pressure is normal at < 35 mmHg. There is no pulmonic regurgitation present. The aortic root size is normal. Normal inferior vena cava with normal inspiratory collapse consistent with estimated right atrial pre ssure of 5 mmHg. There is no pericardial effusion. CONCLUSIONS -------- 1. The left ventricular size is normal. 2. Left ventricular wall thickness is normal. 3. Overall left ventricular systolic function is normal with, an EF between 55 - 60 %. 4. The diastolic filling pattern is normal for the age of the patient 7.99 5. There is trace mitral regurgitation. 6. Trace tricuspid regurgitation present. 7. There is no pericardial effusion. VALVE REPAIRER RECLAMATION: Rhonda Bucio RDCS
--- NOTE | 2020-11-14 15:31 | EST ---
EXERCISE STRESS AGE: 50 SEX: M HT: 5'11" WT: 160 lbs PROTOCOL: Emmanuel STAGE: 6 DURATION OF EXERCISE: 16:00 HEART RATE REST: 59 BLOOD PRESSURE REST: 127/86 MAXIMUM HEART RATE ACHIEVED: 170 MAXIMUM BLOOD PRESSURE: 200/60 85% MPHR: 143 100% MPHR: 168 METS: 16.1 INDICATIONS: Chest pain DATE OF SERVICE: 11/14/2020 PROCEDURE: EKG of exercise Cardiolite. STRESS DATA: Heart rate is 59, pressure is 127/86 mmHg. Baseline EKG showed sinus mechanism. The patient exercised on the treadmill according to Emmanuel protocol for a total of 16 minutes and achieved 16.1 METS. Max heart rate was 170 which is about 100% of maximum predicted heart rate and maximum blood pressure was 200/60 mmHg. Clinically, the patient did not have any symptoms and the EKG did not show any significant ST or T-wave abnormalities concerning for ischemia. CONCLUSION: 1. Excellent exercise tolerance. 2. Normal EKG in response to exercise. 3. Please follow up on the Cardiolite portion on a separate report from the Radiology Department. MMODL / IJN: [id number] /
--- NOTE | 2020-11-14 17:56 | NM ---
EXAMINATION TYPE: NM stress cardiolite complete DATE OF EXAM: 11/14/2020 COMPARISON: NONE HISTORY: Chest pain TECHNIQUE: After the intravenous administration of 9.2 mCi Tc 99m Sestamibi - Cardiolite resting SPE CT images acquired 60 minutes post injection. At peak stress 24.1 mCi Tc 99m Sestamibi - Stress images obtained 10 minutes post injection The patient was stressed with 0.4mg Lexiscan. FINDINGS: No stress-induced ischemic changes evident No fixed defects are evident to suggest old infarct No reversible stress defects on Spect images. Wall motion is normal. Ejection fraction is calculated to be 68 %. IMPRESSION: 1. No suspicious stress-induced ischemic change.
== END | disposition home or self-care (01) ==
LOC: RADNMMAIN 08:14
PROVIDERS: ATTEND Family Medicine
DX: I08.1 Rheumatic disorders of both mitral and tricuspid valves (principal)
CPT/HCPCS: 93017; 93306; 78452; A9500

== ENCOUNTER 2022-01-02 04:31 | Observation (INO) | payer BC ==
[2022-01-02] MEDS ORDERED: SODIUM CHLORIDE 0.9% 500 ML 500 ML IV STA (04:44)
[2022-01-02] MEDS ORDERED: SODIUM CHLORIDE 0.9% 1,000 ML IV STA ×2 (04:44)
[2022-01-02] MEDS ORDERED: diazePAM 5 MG/ML 1 ML VIAL IVP STA (04:44)
--- NOTE | 2022-01-02 04:45 | ED ---
Alcohol HPI - General Stated Complaint: Shakes, high BP Time Seen by Provider: 01/02/22 04:44 Source: patient Mode of arrival: ambulatory Limitations: no limitations - Related Data Home Medications Medication Instructions Recorded Confirmed lamoTRIgine [Lamotrigine] 100 mg PO HS 03/23/16 06/15/17 Atorvastatin [Lipitor] 10 mg PO DAILY 06/17/17 06/17/17 Previous Rx's Medication Instructions Recorded LORazepam [Ativan] 1 mg PO TID PRN #8 tab 08/25/17 Allergies Allergy/AdvReac Type Severity Reaction Status Date / Time No Known Allergies Allergy Verified 01/02/22 04:41 Review of Systems ROS Statement: Those systems with pertinent positive or pertinent negative responses have been documented in the HPI. ROS Other: All systems not noted in ROS Statement are negative. Past Medical History Past Medical History: CVA/TIA, GERD/Reflux, Hypertension Additional Past Medical History / Comment(s): stroke 5 years ago, short term memory loss, tremors History of Any Multi-Drug Resistant Organisms: None Reported Past Surgical History: Cholecystectomy Past Anesthesia/Blood Transfusion Reactions: No Reported Reaction Past Psychological History: No Psychological Hx Reported Smoking Status: Never smoker Past Alcohol Use History: Abuse, Daily, Heavy Past Drug Use History: Marijuana - Past Family History Mother Family Medical History: No Reported History Additional Family Medical History / Comment(s): healthy Father Family Medical History: CVA/TIA Additional Family Medical History / Comment(s): age 55 from stroke General Exam Limitations: no limitations Course Vital Signs 01/02/22 04:33 Temperature 97.4 F L Pulse Rate 75 Respiratory 20 Rate Blood Pressure 146/87 O2 Sat by Pulse 97 Oximetry Medical Decision Making - Lab Data Result diagrams: 01/02/22 05:12 Lab Results 01/02/22 Range/Units 05:12 WBC 4.1 (3.8-10.6) k/uL RBC 4.80 (4.30-5.90) m/uL Hgb 15.5 (13.0-17.5) gm/dL Hct 46.5 (39.0-53.0) % MCV 96.9 (80.0-100.0) fL MCH 32.4 (25.0-35.0) pg MCHC 33.5 (31.0-37.0) g/dL RDW 13.5 (11.5-15.5) % Plt Count 107 L (150-450) k/uL MPV 9.3 Neutrophils % 72 % Lymphocytes % 19 % Monocytes % 5 % Eosinophils % 2 % Basophils % 1 % Neutrophils # 3.0 (1.3-7.7) k/uL Lymphocytes # 0.8 L (1.0-4.8) k/uL Monocytes # 0.2 (0-1.0) k/uL Eosinophils # 0.1 (0-0.7) k/uL Basophils # 0.0 (0-0.2) k/uL - EKG Data -: EKG Interpreted by Me (EKG shows a fibrillation 81 QRS 96 QTc 408) Disposition Clinical Impression: New onset atrial fibrillation, Near syncope, Weakness Disposition: ADMITTED IP TO THIS HOSP Condition: Fair Is patient prescribed a controlled substance at d/c from ED?: No Referrals: Ameya Page MD [Primary Care Provider] - 1-2 days
[2022-01-02 05:25] LABS: Basophils % (A) 1 %; Eosinophils # (A) 0.1 k/uL (0-0.7); Eosinophils % (A) 2 %; HCT 46.5 % (39.0-53.0); HGB 15.5 gm/dL (13.0-17.5); Lymphocytes # (A) 0.8 k/uL (1.0-4.8); Lymphocytes % (A) 19 %; MCH 32.4 pg (25.0-35.0); MCHC 33.5 g/dL (31.0-37.0); MCV 96.9 fL (80.0-100.0); Mean Platelet Volume 9.3; Monocytes # (A) 0.2 k/uL (0-1.0); Monocytes % (A) 5 %; Neutrophils % (A) 72 %; Platelet Count 107 k/uL (150-450); RDW 13.5 % (11.5-15.5); WBC 4.1 k/uL (3.8-10.6)
[2022-01-02] MEDS ORDERED: LORazepam 2 MG/ML INJ IV PRN ×3 (05:39)
[2022-01-02] MEDS ORDERED: THIAMINE 100 MG/ML 2 ML VIAL IM STA (05:39)
[2022-01-02 05:42] LABS: ALT 113 U/L (4-49); AST 204 U/L (17-59); African American GFR (CKD) >90 (>60 ml/min/1.73 sqM); Albumin 4.9 g/dL (3.5-5.0); Alkaline Phosphatase 100 U/L (38-126); Anion Gap 12 mmol/L; Blood Urea Nitrogen 9 mg/dL (9-20); Calcium 9.3 mg/dL (8.4-10.2); Carbon Dioxide 22 mmol/L (22-30); Chloride 104 mmol/L (98-107); Glucose 128 mg/dL (74-99); Lipase 184 U/L (23-300); Magnesium 1.7 mg/dL (1.6-2.3); Non-African American GFR(CKD) >90 (>60 ml/min/1.73 sqM); Phosphorus 3.1 mg/dL (2.5-4.5); Potassium 3.5 mmol/L (3.5-5.1); Sodium 138 mmol/L (137-145); Total Bilirubin 0.8 mg/dL (0.2-1.3); Total Protein 7.6 g/dL (6.3-8.2)
[2022-01-02] MEDS ORDERED: NALOXONE 0.4 MG/ML 1 ML VIAL IV PRN (05:42)
[2022-01-02] MEDS ORDERED: ONDANSETRON 4 MG/2 ML VIAL IVP PRN (05:42)
[2022-01-02 06:07] LABS: Alcohol 90 mg/dL
[2022-01-02] MEDS: diazePAM 5 MG/ML 1 ML VIAL IVP SCH ×2 (07:04→13:09)
[2022-01-02] MEDS ORDERED: HEPARIN SODIUM 1,000 UN/ML (10ML VL) IV PRN (07:26)
[2022-01-02] MEDS ORDERED: HEPARIN SODIUM 1,000 UN/ML (10ML VL) IV ONE (07:26)
[2022-01-02 07:59] LABS: Basophils % (A) 1 %; Eosinophils % (A) 1 %; HCT 47.4 % (39.0-53.0); HGB 15.1 gm/dL (13.0-17.5); Lymphocytes # (A) 0.8 k/uL (1.0-4.8); Lymphocytes % (A) 21 %; MCV 96.8 fL (80.0-100.0); Mean Platelet Volume 8.9; Monocytes # (A) 0.2 k/uL (0-1.0); Monocytes % (A) 6 %; Neutrophils # (A) 2.8 k/uL (1.3-7.7); Neutrophils % (A) 69 %; Platelet Count 102 k/uL (150-450); RBC 4.89 m/uL (4.30-5.90); RDW 13.2 % (11.5-15.5)
[2022-01-02 08:11] LABS: INR 0.9 (<1.2); Partial Thromboplastin Time 24.3 sec (22.0-30.0); Prothrombin Time 10.3 sec (9.0-12.0)
[2022-01-02] MEDS: HEPARIN SOD,PORK IN 0.45% NACL 25,000 UNIT in 0.45% NACL 1 250ML.BAG IV SCH (08:27)
[2022-01-02] MEDS: METOPROLOL SUCCINATE (ER) 25 MG TAB.ER.24H PO SCH (08:31)
[2022-01-02] MEDS: DEXTROSE 5%-0.45% NACL 1,000 ML IV SCH ×3 (08:33→20:39)
[2022-01-02] MEDS ORDERED: PANTOPRAZOLE 40 MG/10 ML VIAL IV SCH (09:00)
[2022-01-02] MEDS ORDERED: amLODIPine 5 MG TAB PO SCH (09:00)
--- NOTE | 2022-01-02 11:16 | P.CRDCN ---
History of Present Illness Consult date: 01/02/22 History of present illness: Patient has a known history of CVA, EtOH abuse and hypertension. Patient does not follow with a occupational therapist assistants. Patient about a week ago was at the gym on the treadmill when he got off he became lightheaded and dizzy and had a near syncopal episode and almost fell to his knees. He followed up yesterday with his primary for his annual physical and was found to have elevated blood pressure patient was started on Norvasc. He also brought up to his primary that he has been abusing alcohol and wished to stop. Patient then woke up this [employer] to get ready for work and initially hour he became dizzy and lightheaded again. And presented to the ER due to the dizziness. Patient's EKG showed him in atrial fibrillation with a controlled ventricle rate. Patient has no history of atrial fibrillation. Patient has been started on a heparin drip, will check coverage for Eliquis. Patient is also started on Toprol-XL 25 mg for blood pressure and heart rate control and Norvasc was discontinued. Will obtain an echocardiogram. Initial blood pressure was 146/87 with a heart rate of 75. Troponin negative 1, other labs reviewed sodium 138 potassium 3.5 BUN 9 creatinine 0.74 mag 1.7 AST 204 ALT 113 hemoglobin 15.1 platelet 102. Will check a fasting cholesterol panel in the morning. If patient remains asymptomatic, will transition him to oral Eliquis tomorrow and possible discharge tomorrow afternoon. Advised patient undergo an outpatient stress test. If patient does not convert back to sinus rhythm on his own once he is properly anticoagulated for 3 weeks will consider a outpatient GRAYSON/cardioversion at that time. Review of Systems REVIEW OF SYSTEMS At the time of my exam: CONSTITUTIONAL: Denies fever or chills. Reports dizziness upon admission rate has since resolved EYES: Negative for vision changes ENT: Negative for hearing loss CARDIOVASCULAR: Denies chest pain, shortness of breath, diaphoresis, orthopnea, PND or palpitations. VASCULAR: Denies edema RESPIRATORY: Denies cough. GASTROINTESTINAL: Denies abdominal pain, diarrhea, constipation, nausea or vomiting. MUSCULOSKELETAL: Denies myalgias. NEUROLOGIC: Denies numbness, tingling, headache or weakness. ENDOCRINE: Denies fatigue, weight change, polydipsia or polyurina. GENITOURINARY: Denies burning, hematuria or urgency with micturation. HEMATOLOGIC: Denies history of anemia or bleeding. DERMATOLOGY: Denies rash or skin sores PSYCH: Negative for depression or hallucinations. Past Medical History Past Medical History: CVA/TIA, GERD/Reflux, Hypertension Additional Past Medical History / Comment(s): stroke 5 years ago, short term memory loss, tremors History of Any Multi-Drug Resistant Organisms: None Reported Past Surgical History: Cholecystectomy Past Anesthesia/Blood Transfusion Reactions: No Reported Reaction Past Psychological History: No Psychological Hx Reported Smoking Status: Never smoker Past Alcohol Use History: Abuse, Daily, Heavy Past Drug Use History: Marijuana - Past Family History Mother Family Medical History: No Reported History Additional Family Medical History / Comment(s): healthy Father Family Medical History: CVA/TIA Additional Family Medical History / Comment(s): age 55 from stroke Medications and Allergies Home Medications Medication Instructions Recorded Confirmed Type Apixaban [Eliquis] 5 mg PO BID 30 Days #60 tab 01/02/22 Rx Naltrexone HCl [Revia] 50 mg PO DAILY 01/02/22 01/02/22 History Thiamine [Vitamin B-1] 100 mg PO DAILY 01/02/22 01/02/22 History amLODIPine [Norvasc] 5 mg PO DAILY 01/02/22 01/02/22 History Allergies Allergy/AdvReac Type Severity Reaction Status Date / Time No Known Allergies Allergy Verified 01/02/22 06:13 Physical Exam Vitals: Vital Signs Temp Pulse Resp BP Pulse Ox 01/02/22 08:37 116 H 16 120/88 100 01/02/22 04:33 97.4 F L 75 20 146/87 97 Intake and Output 01/01/22 01/02/22 01/02/22 22:59 06:59 14:59 Other: Weight 77.111 kg PHYSICAL EXAMINATION General: The patient is awake and alert, in no distress, and does not appear acutely ill. Skin: Skin is warm and dry and no rashes or lesions are noted. Eye: Pupils are equal, round and reactive to light, extra-ocular movements are intact; there is normal conjunctiva bilaterally. Ears, nose, mouth and throat: There are moist mucous membranes and no oral lesions. Neck: The neck is supple, there is no tenderness or JVD. Cardiovascular: There is irregular rate and rhythm. No murmur, rub or gallop is appreciated. Respiratory: Lungs are clear to auscultation, respirations are non-labored, breath sounds are equal. Gastrointestinal: Soft, non-distended, non-tender abdomen without masses or organomegaly noted. There is no rebound or guarding present. Bowel sounds are unremarkable. Back: There is no tenderness to palpation in the midline. There is no obvious deformity. Musculoskeletal: Normal ROM, no tenderness, There is no pedal edema. There is no calf tenderness or swelling. Extremities: Mild bilateral pitting edema Vascular: Femoral pulse is normal. Posterior tibial pulses are normal .Dorsalis pedis is palpable. Neurological: CN II-XII intact. There are no obvious motor or sensory deficits. Speech is normal. Psychiatric: Cooperative, appropriate mood & affect, normal judgment Results 01/02/22 07:45 01/02/22 05:12 Cardiac Enzymes 01/02/22 01/02/22 Range/Units 05:12 07:45 AST 204 H (17-59) U/L Troponin I <0.012 (0.000-0.034) ng/mL Coagulation 01/02/22 Range/Units 07:45 PT 10.3 (9.0-12.0) sec APTT 24.3 (22.0-30.0) sec CBC 01/02/22 01/02/22 Range/Units 05:12 07:45 WBC 4.1 4.0 (3.8-10.6) k/uL RBC 4.80 4.89 (4.30-5.90) m/uL Hgb 15.5 15.1 (13.0-17.5) gm/dL Hct 46.5 47.4 (39.0-53.0) % Plt Count 107 L 102 L (150-450) k/uL Comprehensive Metabolic Panel 01/02/22 Range/Units 05:12 Sodium 138 (137-145) mmol/L Potassium 3.5 (3.5-5.1) mmol/L Chloride 104 (98-107) mmol/L Carbon Dioxide 22 (22-30) mmol/L BUN 9 (9-20) mg/dL Creatinine 0.74 (0.66-1.25) mg/dL Glucose 128 H (74-99) mg/dL Calcium 9.3 (8.4-10.2) mg/dL AST 204 H (17-59) U/L ALT 113 H (4-49) U/L Alkaline Phosphatase 100 (38-126) U/L Total Protein 7.6 (6.3-8.2) g/dL Albumin 4.9 (3.5-5.0) g/dL Current Medications Generic Name Dose Route Start Last Admin Trade Name Freq PRN Reason Stop Dose Admin Diazepam 5 mg 01/02/22 06:45 01/02/22 07:04 Diazepam 5 Mg/Ml 1 Ml Vial IVP 5 mg Q6H LEANDER Administration Heparin Sodium (Porcine) 0 unit 01/02/22 07:26 Heparin Sodium 1,000 Un/Ml (10ml Vl) IV PER PROTOCOL PRN Low PTT Protocol Dextrose/Sodium Chloride 1,000 mls @ 75 mls/hr 01/02/22 05:45 01/02/22 08:33 Dextrose 5%-1/2ns Iv Soln IV 75 mls/hr .[id number] LEANDER Administration Heparin Sodium/Sodium Chloride 250 mls @ 9.253 mls/hr 01/02/22 07:30 01/02/22 08:27 25,000 unit/ Sodium Chloride IV 12 units/kg/hr .Q24H LEANDER 9.253 mls/hr Administration Protocol 12 UNITS/KG/HR Lorazepam 1 mg 01/02/22 05:39 Lorazepam 2 Mg/Ml Inj IV Q2HR PRN CIWA 8 or 9 Lorazepam 1 mg 01/02/22 05:39 Lorazepam 2 Mg/Ml Inj IV Q1HR PRN CIWA 10 to 15 Lorazepam 2 mg 01/02/22 05:39 Lorazepam 2 Mg/Ml Inj IV 01/04/22 05:40 Q10M PRN CIWA 16 or higher Metoprolol Succinate 25 mg 01/02/22 09:00 01/02/22 08:31 Metoprolol Succinate (Er) 25 Mg Tab.Er.24h PO 25 mg DAILY LEANDER Administration Naloxone HCl 0.2 mg 01/02/22 05:42 Naloxone 0.4 Mg/Ml 1 Ml Vial IV Q2M PRN Opioid Reversal Ondansetron HCl 4 mg 01/02/22 05:42 Ondansetron 4 Mg/2 Ml Vial IVP Q8HR PRN Nausea And Vomiting Pantoprazole Sodium 40 mg 01/02/22 09:00 01/02/22 08:43 Pantoprazole 40 Mg/10 Ml Vial IV 40 mg DAILY LEANDER Administration Thiamine HCl 100 mg 01/02/22 17:30 Thiamine 100 Mg Tab PO BID-W/MEALS LEANDER Intake and Output 01/01/22 01/02/22 01/02/22 22:59 06:59 14:59 Other: Weight 77.111 kg 01/02/22 07:45 01/02/22 05:12 Assessment and Plan Assessment: Persistent atrial fibrillation secondary to EtOH use and possible tachycardia bradycardia syndrome Hypertension Plan: Start heparin drip Check coverage for Eliquis, transition patient to Eliquis tomorrow Start Toprol XL 25 mg daily Obtain and review 2-D echocardiogram Obtain a fasting cholesterol panel Trend troponins Recommended outpatient stress test If patient remains in atrial fibrillation once properly anticoagulated recommend GRAYSON cardioversion outpatient Continue telemetry monitoring Possible discharge in 24 hours Further recommendations based on clinical course The above impression and plan of care have been discussed and directed by the signing physician. Hina Elkins, nurse practitioner, acting as scribe for signing physician.
--- NOTE | 2022-01-02 11:37 | CA ---
Transthoracic Echo Report Name: Ravinder York Age: 51 Gender: M : 1970 Exam Date: 01/02/2022 07:46 Exam Location: [facility] Ht (in): 71 Wt (lb): 170 Ordering Physician: Hina Elkins Attending/Referring Phys: Coiler Operator Alysha Lew RDCS Procedure CPT: Indications: a fib Cardiac Hx: Technical Quality: Fair Contrast 1: Total Dose (mL): Contrast 2: Total Dose (mL): MEASUREMENTS (Male / Female) Normal Values 2D ECHO LV Diastolic Diameter PLAX 4.1 cm 4.2 - 5.9 / 3.9 - 5.3 cm LV Systolic Diameter PLAX 2.6 cm IVS Diastolic Thickness 1.3 cm 0.6 - 1.0 / 0.6 - 0.9 cm LVPW Diastolic Thickness 1.2 cm 0.6 - 1.0 / 0.6 - 0.9 cm LV Relative Wall Thickness 0.6 RV Internal Dim ED PLAX 3.9 cm LA Volume 44.5 cm??? 18 - 58 / 22 - 52 cm??? M-MODE Aortic Root Diameter MM 2.8 cm LA Systolic Diameter MM 4.3 cm LA Ao Ratio MM 1.5 AV Cusp Separation MM 2.2 cm DOPPLER AV Peak Velocity 132.8 cm/s AV Peak Gradient 7.1 mmHg LVOT Peak Velocity 98.4 cm/s LVOT Peak Gradient 3.9 mmHg TR Peak Velocity 170.8 cm/s TR Peak Gradient 11.7 mmHg Right Ventricular Systolic Press 16.7 mmHg FINDINGS Left Ventricle Mildly increased septal wall thickness. Normal left ventricular systolic function with no obvious regional wall motion abnormalities. Left ventricular ejection fraction is estimated at 55-60 %. Right Ventricle Right ventricle at upper limits of normal. Right ventricular systolic pressure within normal limits. Right Atrium Normal right atrial size. Left Atrium Normal left atrial size. No evidence for an atrial septal defect. Mitral Valve Structurally normal mitral valve. No mitral stenosis, regurgitation or prolapse. Aortic Valve Trileaflet aortic valve. No aortic valve stenosis or regurgitation. Tricuspid Valve Structurally normal tricuspid valve. Mild tricuspid regurgitation. Pulmonic Valve Trace pulmonic regurgitation. Pericardium No pericardial effusion. Aorta Normal size aortic root and proximal ascending aorta. CONCLUSIONS Normal LV size and systolic function with [id number] concentric LVH. No significant abnormality on the Doppler exam. No pericardial effusion Previewed by: Dr. Erickson Enciso MD (Electronically Signed) Final Date: 02 January 2022 11:36
[2022-01-02] MEDS ORDERED: Magnesium Replacement Protocol 1 EACH MISC MISCELLANE PRN (16:42)
[2022-01-02] MEDS ORDERED: Potassium Replacement Protocol 1 EACH MISC MISCELLANE PRN (16:43)
[2022-01-02] MEDS: POTASSIUM CHLORIDE ER 20 MEQ TAB.ER PO SCH ×2 (16:51→17:44)
[2022-01-02] MEDS: THIAMINE 100 MG TAB PO SCH (16:51)
--- NOTE | 2022-01-02 20:17 | P.HPIM ---
History of Present Illness H&P Date: 01/02/22 Chief Complaint: Short of breath I'm rounding for Dr. Ameya Page This is a 51-year-old patient who follows with Dr. Ameya Page. Day before patient had gone to the gym and was doing treadmill and he became dizzy short of breath lightheaded and weak in his legs. Also developed palpitation. Decided to come home. He is occasionally had palpitation on and off. Symptoms happened the following morning he decided to come in. Patient is found to be in atrial fibrillation. Patient for many years drank alcohol 1 pint a day. Now down to about 4 beers a day for last 2 years. Patient started IV heparin in the ER. Also Toprol-XL today. Having tremors. Anxious. Review of systems: GEN.: Tired EYES: None HEENT: None NECK: None RESPIRATORY: As above CARDIOVASCULAR: As above GASTROINTESTINAL: None GENITOURINARY: None MUSCULOSKELETAL: None LYMPHATICS: None HEMATOLOGICAL: None PSYCHIATRY: Anxious NEUROLOGICAL: Tremors Past medical history to include: GERD, hypertension, tremors, alcohol use disorder Social history: . Drank 1 pint a day of alcohol for many years. For last 2 years drinking about 4 beers a day. 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 Family history: Reviewed, noncontributory to presentation Physical examination: VITAL SIGNS: 98.1, 83, 18, 1 36 x 89, 96% room air GENERAL: BMI 23.7, laying in bed awake slightly anxious. EYES: Pupils equal. Conjunctiva normal. HEENT: External appearance of nose and ears normal, oral cavity grossly normal. NECK: JVD not raised; masses not palpable. HEART: Heart sounds irregular; no edema. LUNGS: Respiratory rate normal; clear to auscultation. ABDOMEN: Soft, nontender, liver spleen not palpable, no masses palpable. PSYCH: Alert and oriented x3; mood and affect anxiousl. MUSCULOSKELETAL:No Clubbing/cyanosis;muscles-grossly intact NEUROLOGICAL: Cranial nerves grossly intact; no facial asymmetry, power and sensation grossly intact. Tremors LYMPHATICS: No lymph nodes palpable in the axilla and neck INVESTIGATIONS, reviewed in the clinical context: White count 4 hemoglobin 15.1 platelets 102 potassium 3.5 crit 0.74 AST 204 ALT 113 Troponin I 2 negative Serum alcohol 90 EKG tracing personally reviewed by me-atrial fibrillation. Rate 80s Chest x-ray film personally reviewed by me-some hyperinflation 2-D echocardiogram: EF 55-60%. Assessment and plan: -New onset of atrial fibrillation with a rapid ventricular rate, symptomatic leading to admission IV heparin. Toprol-XL 25 mg. -IV heparin monitoring -Alcohol use disorder Thiamine. Patient does take naltrexone at home -Alcohol withdrawals, acute CIWA scale. Valium 5 mg 3 times a day. Patient is only on Lopressor. -Essential hypertension Toprol-XL 25 mg a day -Chronic insomnia, causing unknown Currently on Valium -Alcoholic hepatitis Hepatic ultrasound -Thrombocytopenia secondary to alcoholic liver disease Follow CBC Toprol-XL. Valium. CIWA scale. Thiamine. Telemetry. Cardiology consultation. Activity as tolerated. Past Medical History Past Medical History: CVA/TIA, GERD/Reflux, Hypertension Additional Past Medical History / Comment(s): stroke 5 years ago, short term memory loss, tremors History of Any Multi-Drug Resistant Organisms: None Reported Past Surgical History: Cholecystectomy Past Anesthesia/Blood Transfusion Reactions: No Reported Reaction Past Psychological History: No Psychological Hx Reported Smoking Status: Never smoker Past Alcohol Use History: Abuse, Daily, Heavy Past Drug Use History: Marijuana - Past Family History Mother Family Medical History: No Reported History Additional Family Medical History / Comment(s): healthy Father Family Medical History: CVA/TIA Additional Family Medical History / Comment(s): age 55 from stroke Medications and Allergies Home Medications Medication Instructions Recorded Confirmed Type Apixaban [Eliquis] 5 mg PO BID 30 Days #60 tab 01/02/22 Rx Naltrexone HCl [Revia] 50 mg PO DAILY 01/02/22 01/02/22 History Thiamine [Vitamin B-1] 100 mg PO DAILY 01/02/22 01/02/22 History amLODIPine [Norvasc] 5 mg PO DAILY 01/02/22 01/02/22 History Allergies Allergy/AdvReac Type Severity Reaction Status Date / Time No Known Allergies Allergy Verified 01/02/22 06:13 Physical Exam Vitals: Vital Signs Temp Pulse Resp BP Pulse Ox 01/02/22 13:03 96 18 131/93 95 01/02/22 11:24 98.1 F 83 18 136/89 96 01/02/22 08:37 116 H 16 120/88 100 01/02/22 04:33 97.4 F L 75 20 146/87 97 Intake and Output 01/01/22 01/02/22 01/02/22 22:59 06:59 14:59 Other: Weight 77.111 kg Results CBC & Chem 7: 01/02/22 07:45 01/02/22 05:12 Labs: Abnormal Lab Results - Last 24 Hours (Table) 01/02/22 01/02/22 01/02/22 Range/Units 05:12 05:12 07:45 Plt Count 107 L 102 L (150-450) k/uL Lymphocytes # 0.8 L 0.8 L (1.0-4.8) k/uL Glucose 128 H (74-99) mg/dL AST 204 H (17-59) U/L ALT 113 H (4-49) U/L
[2022-01-02] MEDS: diazePAM 5 MG TAB PO SCH (20:40)
[2022-01-02] MEDS: MAGNESIUM SULFATE-D5W PMX 1 GM in DEXTROSE/WATER 1 100ML.BAG IVPB SCH ×2 (20:40→22:13)
--- NOTE | 2022-01-02 21:42 | XR ---
EXAMINATION TYPE: XR chest 2V DATE OF EXAM: 01/02/2022 6:56 PM COMPARISON: Chest radiographs from 03/23/2016 TECHNIQUE: XR chest 2V Frontal and lateral views of the chest. CLINICAL INDICATION:Male, 51 years old with history of sob; FINDINGS: Lungs/Pleura: There is no evidence of pleural effusion, focal consolidation, or pneumothorax. Pulmonary vascularity: Unremarkable. Heart/mediastinum: Cardiomediastinal silhouette is unremarkable. Musculoskeletal: No acute osseous pathology. IMPRESSION: No acute cardiopulmonary disease/process.
[2022-01-02] MEDS ORDERED: diazePAM 2 MG TAB PO SCH (22:00)
[2022-01-03] MEDS: THIAMINE 100 MG TAB PO SCH ×2 (05:23→17:33)
[2022-01-03] MEDS: HEPARIN SOD,PORK IN 0.45% NACL 25,000 UNIT in 0.45% NACL 1 250ML.BAG IV SCH (05:27)
[2022-01-03 07:53] LABS: Basophils % (A) 1 %; Eosinophils # (A) 0.2 k/uL (0-0.7); Eosinophils % (A) 3 %; HCT 49.8 % (39.0-53.0); Lymphocytes # (A) 1.6 k/uL (1.0-4.8); Lymphocytes % (A) 30 %; MCH 31.5 pg (25.0-35.0); MCHC 32.2 g/dL (31.0-37.0); MCV 97.9 fL (80.0-100.0); Mean Platelet Volume 9.2; Monocytes # (A) 0.3 k/uL (0-1.0); Monocytes % (A) 6 %; Neutrophils # (A) 3.1 k/uL (1.3-7.7); Neutrophils % (A) 59 %; Platelet Count 113 k/uL (150-450); RBC 5.09 m/uL (4.30-5.90); RDW 13.1 % (11.5-15.5); WBC 5.3 k/uL (3.8-10.6)
[2022-01-03 08:15] LABS: Partial Thromboplastin Time 74.5 sec (22.0-30.0); Prothrombin Time 10.5 sec (9.0-12.0)
--- NOTE | 2022-01-03 08:37 | US ---
EXAMINATION TYPE: US abdomen limited DATE OF EXAM: 01/03/2022 COMPARISON: NONE CLINICAL HISTORY: alcoholism history. TECHNIQUE: Multiple sonographic images of the right upper quadrant are obtained. FINDINGS: EXAM MEASUREMENTS: Liver Length: 14.4 cm Gallbladder Wall: Surgically absent CBD: 0.8 cm Right Kidney: 10.9 x 4.8 x 5.3 cm EDUCATIONAL DIRECTOR NOTES: Pancreas: portions visualized wnl, partially obscured by overlying bowel gas Liver: Increased attenuation Gallbladder: Surgically absent Evidence for sonographic Pryor's sign: no CBD: wnl Right Kidney: No hydronephrosis or masses seen IMPRESSION: 1. Visualized abdomen ultrasound is unremarkable.
[2022-01-03] MEDS: METOPROLOL SUCCINATE (ER) 25 MG TAB.ER.24H PO SCH (08:44)
[2022-01-03] MEDS: diazePAM 5 MG TAB PO SCH (08:44)
[2022-01-03 08:48] LABS: ALT 94 U/L (4-49); AST 144 U/L (17-59); African American GFR (CKD) >90 (>60 ml/min/1.73 sqM); Albumin 4.1 g/dL (3.5-5.0); Alkaline Phosphatase 76 U/L (38-126); Anion Gap 4 mmol/L; Blood Urea Nitrogen 8 mg/dL (9-20); Carbon Dioxide 28 mmol/L (22-30); Chloride 105 mmol/L (98-107); Glucose 101 mg/dL (74-99); Non-African American GFR(CKD) >90 (>60 ml/min/1.73 sqM); Phosphorus 3.2 mg/dL (2.5-4.5); Potassium 4.3 mmol/L (3.5-5.1); Sodium 137 mmol/L (137-145); Total Protein 6.9 g/dL (6.3-8.2)
[2022-01-03 09:31] VITALS: RESP 16
--- NOTE | 2022-01-03 12:27 | P.PN ---
Subjective HISTORY OF PRESENTING ILLNESS Patient has a known history of CVA, EtOH abuse and hypertension. 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 Patient about a week ago was at the gym on the treadmill when he got off he became lightheaded and dizzy and had a near syncopal episode and almost fell to his knees. He followed up yesterday with his primary for his annual physical and was found to have elevated blood pressure patient was started on Norvasc. He also brought up to his primary that he has been abusing alcohol and wished to stop. Patient then woke up this morning to get ready for work and initially hour he became dizzy and lightheaded again. And presented to the ER due to the dizziness. Patient's EKG showed him in atrial fibrillation with a controlled ventricle rate. Patient has no history of atrial fibrillation. Patient has been started on a heparin drip, will check coverage for Eliquis. Patient is also started on Toprol-XL 25 mg for blood pressure and heart rate control and Norvasc was discontinued. Will obtain an echocardiogram. Initial blood pressure was 146/87 with a heart rate of 75. Troponin negative 1, other labs reviewed sodium 138 potassium 3.5 BUN 9 creatinine 0.74 mag 1.7 AST 204 ALT 113 hemoglobin 15.1 platelet 102. Will check a fasting cholesterol panel in the morning. If patient remains asymptomatic, will transition him to oral Eliquis tomorrow and possible discharge tomorrow afternoon. Advised patient undergo an outpatient stress test. If patient does not convert back to sinus rhythm on his own once he is properly anticoagulated for 3 weeks will consider a outpatient GRAYSON/cardioversion at that time. 01/03 Patient seen and examined. Patient states he feels much better. Remains in A. fib with controlled ventricular rates on telemetry. Denies any chest pain or shortness breath. No lightheadedness. He has been able walk the halls without difficulty. PHYSICAL EXAMINATION Vital signs reviewed. CONSTITUTIONAL: No apparent distress. HEENT: Head is normocephalic. Pupils are equal, round. Sclerae anicteric. Mucous membranes of the mouth are moist. No JVD. No carotid bruit. CHEST EXAMINATION: Lungs are clear to auscultation. No chest wall tenderness is noted on palpation or with deep breathing. HEART EXAMINATION: Irregular rate and rhythm. S1, S2 heard. No murmurs, gallops or rub. ABDOMEN: Soft, nontender. Positive bowel sounds. EXTREMITIES: 2+ peripheral pulses, no lower extremity edema and no calf tenderness. NEUROLOGIC EXAMINATION: Patient is awake, alert and oriented x3. Assessment: Persistent atrial fibrillation secondary to EtOH use and possible tachycardia bradycardia syndrome Hypertension History of CVA ETOH use with elevated AST/ALT Near syncopal episode Plan: Transition to Eliquis. Echocardiogram reviewed with preserved EF without significant valvular disease. Discussed recommendations for alcohol cessation. Continue with Toprol however appears fairly well rate controlled. If he has further episodes of near-syncope likely would recommend an event monitor to further evaluate for any tachycardia or bradycardia. Appears stable for discharge home today with outpatient follow- up. Objective - Vital Signs Vital signs: Vital Signs Temp 98.2 F 01/03/22 11:43 Pulse 65 01/03/22 11:43 Resp 16 01/03/22 11:43 BP 111/68 01/03/22 11:43 Pulse Ox 99 01/03/22 11:43 FiO2 Intake & Output 01/02/22 01/03/22 01/03/22 18:59 06:59 18:59 Intake Total 659.358 8186.161 41.565 Output Total 800 775 Balance -596.279 2075.161 -733.435 Weight 77.111 kg Intake: Intake, IV Titration 58.757 1358.161 41.565 Amount Dextrose 5%-0.45% NaCl 1, 1000 000 ml @ 75 mls/hr IV . [id number] [facility] Rx#:[id number] Heparin Sod,Pork in 0.45% 58.757 158.161 41.565 NaCl 25,000 unit In 0.45 % NaCl 1 250ml.bag @ 12 UNITS/KG/HR 9.253 mls/hr IV .Q24H [facility] Rx#: [id number] Magnesium Sulfate-D5w Pmx 200 1 gm In Dextrose/Water 1 100ml.bag @ 100 mls/hr IVPB Q1H [facility] Rx#: [id number] Oral 120 485 Output: Urine 800 775 Other: Voiding Method Toilet Toilet Toilet # Voids 1 - Labs CBC & Chem 7: 01/03/22 06:53 01/03/22 06:53 Labs: Abnormal Lab Results - Last 24 Hours (Table) 01/02/22 01/02/22 01/03/22 Range/Units 14:04 20:02 06:53 Plt Count 113 L (150-450) k/uL APTT 36.0 H 49.5 H (22.0-30.0) sec BUN (9-20) mg/dL Glucose (74-99) mg/dL AST (17-59) U/L ALT (4-49) U/L 01/03/22 01/03/22 Range/Units 06:53 06:53 Plt Count (150-450) k/uL APTT 74.5 H (22.0-30.0) sec BUN 8 L (9-20) mg/dL Glucose 101 H (74-99) mg/dL AST 144 H (17-59) U/L ALT 94 H (4-49) U/L
[2022-01-03] MEDS: diazePAM 2 MG TAB PO SCH ×2 (15:43→20:21)
--- NOTE | 2022-01-03 16:56 | P.PN ---
Progress Note - Text Progress Note Date: 01/03/22 Chief Complaint: Short of breath I'm rounding for Dr. Ameya Page This is a 51-year-old patient who follows with Dr. Ameya Page. Day before patient had gone to the gym and was doing treadmill and he became dizzy short of breath lightheaded and weak in his legs. Also developed palpitation. Decided to come home. He is occasionally had palpitation on and off. Symptoms happened the following morning he decided to come in. Patient is found to be in atrial fibrillation. Patient for many years drank alcohol 1 pint a day. Now down to about 4 beers a day for last 2 years. Patient started IV heparin in the ER. Also Toprol-XL today. Having tremors. Anxious. Admitted with atrial fibrillation uncontrolled, alcohol use disorder, alcohol withdrawal. Started IV heparin. Valium. CIWA scale. January 03: Remains in atrial fibrillation with a heart rate controlled. Appetite is improved. Tremors are better on the current doses of Valium. Will contact Valium 2 mg 3 times a day. Increase activity. Started on eliquis. IV heparin discontinued. Active Medications Apixaban (Apixaban 5 Mg Tab) 5 mg PO BID [facility]; Protocol Diazepam (Diazepam 2 Mg Tab) 2 mg PO TID [facility] Last Admin: 01/03/22 15:43 Dose: 2 mg Dextrose/Sodium Chloride (Dextrose 5%-1/2ns Iv Soln) 1,000 mls @ 75 mls/hr IV .[id number] [facility] Last Admin: 01/02/22 20:39 Dose: 75 mls/hr Lorazepam (Lorazepam 2 Mg/Ml Inj) 1 mg IV Q2HR PRN PRN Reason: CIWA 8 or 9 Lorazepam (Lorazepam 2 Mg/Ml Inj) 1 mg IV Q1HR PRN PRN Reason: CIWA 10 to 15 Lorazepam (Lorazepam 2 Mg/Ml Inj) 2 mg IV Q10M PRN PRN Reason: CIWA 16 or higher Stop: 01/04/22 05:40 Metoprolol Succinate (Metoprolol Succinate (Er) 25 Mg Tab.Er.24h) 25 mg PO DAILY [facility] Last Admin: 01/03/22 08:44 Dose: 25 mg Miscellaneous Information (Magnesium Replacement Protocol 1 Each Misc) 1 each MISCELLANE DAILY PRN; Protocol PRN Reason: Per Protocol Miscellaneous Information (Potassium Replacement Protocol 1 Each Misc) 1 each MISCELLANE DAILY PRN; Protocol PRN Reason: Per Protocol Naloxone HCl (Naloxone 0.4 Mg/Ml 1 Ml Vial) 0.2 mg IV Q2M PRN PRN Reason: Opioid Reversal Ondansetron HCl (Ondansetron 4 Mg/2 Ml Vial) 4 mg IVP Q8HR PRN PRN Reason: Nausea And Vomiting Thiamine HCl (Thiamine 100 Mg Tab) 100 mg PO BID-W/MEALS [facility] Last Admin: 01/03/22 05:23 Dose: Not Given Past medical history to include: GERD, hypertension, tremors, alcohol use disorder Social history: . Drank 1 pint a day of alcohol for many years. For last 2 years drinking about 4 beers a day. 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 Family history: Reviewed, noncontributory to presentation Physical examination: VITAL SIGNS: 98.2, 65, 16, 111/68, 99% room air GENERAL: Appears more comfortable and relaxed today.. EYES: Pupils equal. Conjunctiva normal. HEENT: External appearance of nose and ears normal, oral cavity grossly normal. NECK: JVD not raised; masses not palpable. HEART: Heart sounds irregular; no edema. LUNGS: Respiratory rate normal; clear to auscultation. ABDOMEN: Soft, nontender, liver spleen not palpable, no masses palpable. PSYCH: Alert and oriented x3; mood and affect less anxiousl. NEUROLOGICAL: Cranial nerves grossly intact; no facial asymmetry, power and sensation grossly intact. Tremors much improved INVESTIGATIONS, reviewed in the clinical context: Hepatic ultrasound: Unremarkable January 03: White count 5.3 hemoglobin 16 platelets 113 potassium 4.3 creatinine 0.79 AST 144 ALT 94 White count 4 hemoglobin 15.1 platelets 102 potassium 3.5 crit 0.74 AST 204 ALT 113 Troponin I 2 negative Serum alcohol 90 EKG tracing personally reviewed by me-atrial fibrillation. Rate 80s Chest x-ray film personally reviewed by me-some hyperinflation 2-D echocardiogram: EF 55-60%. Assessment and plan: -New onset of atrial fibrillation with a rapid ventricular rate, now better controlled IV heparin changed odor eliquis. Toprol-XL 25 mg. -IV heparin monitoring: Discontinued -Alcohol use disorder Thiamine. Patient does take naltrexone at home -Alcohol withdrawals, acute: Improving CIWA scale. Decrease Valium 2 mg 3 times a day. Lopressor. -Essential hypertension Toprol-XL 25 mg a day -Chronic insomnia, causing unknown Currently on Valium -Alcoholic hepatitis Hepatic ultrasound unremarkable -Thrombocytopenia secondary to alcoholic liver disease Follow CBC Toprol-XL. Decrease Valium. CIWA scale. Thiamine. Increase activity. Hopefully home tomorrow.
[2022-01-03] MEDS: APIXABAN 5 MG TAB PO SCH (20:21)
[2022-01-04] MEDS: THIAMINE 100 MG TAB PO SCH (06:29)
[2022-01-04] MEDS: APIXABAN 5 MG TAB PO SCH ×2 (08:14→14:10)
[2022-01-04] MEDS: diazePAM 2 MG TAB PO SCH (08:14)
[2022-01-04] MEDS: METOPROLOL SUCCINATE (ER) 25 MG TAB.ER.24H PO SCH (08:14)
[2022-01-04 11:50] VITALS: BP 142/84; PULSE 76; TEMP 98.3
--- NOTE | 2022-01-04 13:07 | P.PN ---
Subjective HISTORY OF PRESENTING ILLNESS Patient has a known history of CVA, EtOH abuse and hypertension. 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 Patient about a week ago was at the gym on the treadmill when he got off he became lightheaded and dizzy and had a near syncopal episode and almost fell to his knees. He followed up yesterday with his primary for his annual physical and was found to have elevated blood pressure patient was started on Norvasc. He also brought up to his primary that he has been abusing alcohol and wished to stop. Patient then woke up this morning to get ready for work and initially hour he became dizzy and lightheaded again. And presented to the ER due to the dizziness. Patient's EKG showed him in atrial fibrillation with a controlled ventricle rate. Patient has no history of atrial fibrillation. Patient has been started on a heparin drip, will check coverage for Eliquis. Patient is also started on Toprol-XL 25 mg for blood pressure and heart rate control and Norvasc was discontinued. Will obtain an echocardiogram. Initial blood pressure was 146/87 with a heart rate of 75. Troponin negative 1, other labs reviewed sodium 138 potassium 3.5 BUN 9 creatinine 0.74 mag 1.7 AST 204 ALT 113 hemoglobin 15.1 platelet 102. Will check a fasting cholesterol panel in the morning. If patient remains asymptomatic, will transition him to oral Eliquis tomorrow and possible discharge tomorrow afternoon. Advised patient undergo an outpatient stress test. If patient does not convert back to sinus rhythm on his own once he is properly anticoagulated for 3 weeks will consider a outpatient GRAYSON/cardioversion at that time. 01/03 Patient seen and examined. Patient states he feels much better. Remains in A. fib with controlled ventricular rates on telemetry. Denies any chest pain or shortness breath. No lightheadedness. He has been able walk the halls without difficulty. 01/04 Patient seen and examined. Patient was placed on amiodarone drip yesterday and attempt to convert patient however remains in A. fib with controlled ventricular rates. Denies any chest pain or pressure. States overall he is feeling well. Able to walk the halls without difficulty. Heart rates mainly in the 60s to 80s . PHYSICAL EXAMINATION Vital signs reviewed. CONSTITUTIONAL: No apparent distress. HEENT: Head is normocephalic. Pupils are equal, round. Sclerae anicteric. Mucous membranes of the mouth are moist. No JVD. No carotid bruit. CHEST EXAMINATION: Lungs are clear to auscultation. No chest wall tenderness is noted on palpation or with deep breathing. HEART EXAMINATION: Irregular rate and rhythm. S1, S2 heard. No murmurs, gallops or rub. ABDOMEN: Soft, nontender. Positive bowel sounds. EXTREMITIES: 2+ peripheral pulses, no lower extremity edema and no calf tenderness. NEUROLOGIC EXAMINATION: Patient is awake, alert and oriented x3. Assessment: Persistent atrial fibrillation secondary to EtOH use Hypertension History of CVA ETOH use with elevated AST/ALT Near syncopal episode Plan: Patient symptomatically is doing much better. Would still attempt rhythm control as he will likely be symptomatic if he is more active. Ideally cardioversion however will not be able to be performed until tomorrow and patient currently feeling well and would prefer to go home with outpatient cardioversion if needed. Okay to send patient home on Eliquis as well as amiodarone 200 mg twice a day and Toprol with follow-up in the office in one week and possible cardioversion. Likely short round of Amio and then would discontinue in the office once cardioverted with possible ablation down the line. Eliquis only needed once cardioverted however after 1 month would discontinue given low CHADSVASC. ETOH cessation. Objective - Vital Signs Vital signs: Vital Signs Temp 98.3 F 01/04/22 11:49 Pulse 76 01/04/22 11:49 Resp 16 01/04/22 11:49 BP 142/84 01/04/22 11:49 Pulse Ox 96 01/04/22 11:49 FiO2 Intake & Output 01/03/22 01/04/22 01/04/22 18:59 06:59 18:59 Intake Total 70.712 485 478 Output Total 2275 Balance -2204.288 485 478 Intake: Intake, IV Titration 70.712 Amount Heparin Sod,Pork in 0.45% 70.712 NaCl 25,000 unit In 0.45 % NaCl 1 250ml.bag @ 12 UNITS/KG/HR 9.253 mls/hr IV .Q24H [facility] Rx#: [id number] Oral 485 478 Output: Urine 2275 Other: Voiding Method Toilet Toilet Toilet # Voids 3 2 - Labs CBC & Chem 7: 01/03/22 06:53 01/03/22 06:53 Labs: Abnormal Lab Results - Last 24 Hours (Table) 01/03/22 Range/Units 06:53 Cholesterol 286.00 H (0.00-200.00) mg/dL
--- NOTE | 2022-01-04 18:08 | P.DS ---
Providers Date of admission: 01/02/22 05:42 Expected date of discharge: 01/04/22 Attending physician: Ameya Page Consults: 01/02/22 05:42 Consult Physician Routine Consulting Provider: Michele Almanza Consult Reason/Comments: newAfib Do you want consulting provider notified?: Yes Primary care physician: [facility] Course: Chief Complaint: Short of breath I'm rounding for Dr. Ameya Page This is a 51-year-old patient who follows with Dr. Ameya Page. Day before patient had gone to the gym and was doing treadmill and he became dizzy short of breath lightheaded and weak in his legs. Also developed palpitation. Decided to come home. He is occasionally had palpitation on and off. Symptoms happened the following morning he decided to come in. Patient is found to be in atrial fibrillation. Patient for many years drank alcohol 1 pint a day. Now down to about 4 beers a day for last 2 years. Patient started IV heparin in the ER. Also Toprol-XL today. Having tremors. Anxious. Admitted with atrial fibrillation uncontrolled, alcohol use disorder, alcohol withdrawal. Started IV heparin. Valium. CIWA scale. January 03: Remains in atrial fibrillation with a heart rate controlled. Appetite is improved. Tremors are better on the current doses of Valium. Will contact Valium 2 mg 3 times a day. Increase activity. Started on eliquis. IV heparin discontinued. January 04: Remains in atrial fibrillation. Heart rate controlled. Discussed with Dr. Mcleod from [facility], [place]. The cause of alcoholic hepatitis will DC kelsi de la cruz. Patient counseled length. He'll continue with revatio./Lifestyle modifications. Discussion and discharge planning more than 35 minutes Past medical history to include: GERD, hypertension, tremors, alcohol use disorder Social history: . Drank 1 pint a day of alcohol for many years. For last 2 years drinking about 4 beers a day. 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 Family history: Reviewed, noncontributory to presentation Physical examination: VITAL SIGNS: 98.3, 76, 16, 142/84, 96% room air GENERAL: Comfortable relaxed EYES: Pupils equal. Conjunctiva normal. HEENT: External appearance of nose and ears normal, oral cavity grossly normal. NECK: JVD not raised; masses not palpable. HEART: Heart sounds irregular; no edema. LUNGS: Respiratory rate normal; clear to auscultation. ABDOMEN: Soft, nontender, liver spleen not palpable, no masses palpable. PSYCH: Alert and oriented x3; mood and affect normal NEUROLOGICAL: Cranial nerves grossly intact; no facial asymmetry, power and sensation grossly intact. Tremors much improved INVESTIGATIONS, reviewed in the clinical context: Hepatic ultrasound: Unremarkable January 03: White count 5.3 hemoglobin 16 platelets 113 potassium 4.3 creatinine 0.79 AST 144 ALT 94 White count 4 hemoglobin 15.1 platelets 102 potassium 3.5 crit 0.74 AST 204 ALT 113 Troponin I 2 negative Serum alcohol 90 EKG tracing personally reviewed by me-atrial fibrillation. Rate 80s Chest x-ray film personally reviewed by me-some hyperinflation 2-D echocardiogram: EF 55-60%. Assessment and plan: -New onset of atrial fibrillation with a rapid ventricular rate, now better controlled eliquis. Toprol-XL 25 mg. -IV heparin monitoring: Discontinued -Alcohol use disorder Thiamine. Continue naltrexone upon discharge -Alcohol withdrawals, acute: Improving CIWA scale. Valium discontinued Lopressor. -Essential hypertension Toprol-XL 25 mg a day -Chronic insomnia, causing unknown -Alcoholic hepatitis Hepatic ultrasound unremarkable -Thrombocytopenia secondary to alcoholic liver disease Follow CBC Disposition: Home Patient Condition at Discharge: Fair Plan - Discharge Summary Discharge Rx Participant: No New Discharge Prescriptions: New Apixaban [Eliquis] 5 mg PO BID 30 Days #60 tab Metoprolol Succinate (ER) [Toprol XL] 25 mg PO DAILY #30 tab Continue Thiamine [Vitamin B-1] 100 mg PO DAILY Naltrexone HCl [Revia] 50 mg PO DAILY Discontinued amLODIPine [Norvasc] 5 mg PO DAILY Discharge Medication List Apixaban [Eliquis] 5 mg PO BID 30 Days #60 tab 01/02/22 [Rx] Naltrexone HCl [Revia] 50 mg PO DAILY 01/02/22 [History] Thiamine [Vitamin B-1] 100 mg PO DAILY 01/02/22 [History] Metoprolol Succinate (ER) [Toprol XL] 25 mg PO DAILY #30 tab 01/04/22 [Rx] Follow up Appointment(s)/Referral(s): Michele Almanza MD [STAFF PHYSICIAN] - 1 Week Ameya Page MD [Primary Care Provider] - 1-2 days Patient Instructions/Handouts: A-fib (Atrial Fibrillation) (DC), Safe Use of Anticoagulants (DC) Discharge Disposition: HOME SELF-CARE
== END 2022-01-04 14:38 | disposition home or self-care (01) ==
LOC: EC 04:31 → 3SCARD 05:42
PROVIDERS: ADMIT Family Medicine; ATTEND Family Medicine
DX: I48.19 Other persistent atrial fibrillation (principal); F10.239 Alcohol dependence with withdrawal, unspecified; F51.04 Psychophysiologic insomnia; I10 Essential (primary) hypertension; K21.9 Gastro-esophageal reflux disease without esophagitis; F12.90 Cannabis use, unspecified, uncomplicated; K70.10 Alcoholic hepatitis without ascites; D69.59 Other secondary thrombocytopenia; Z86.73 Personal history of transient ischemic attack (TIA), and cerebral infarction without residual deficits; Z79.899 Other long term (current) drug therapy; Z90.49 Acquired absence of other specified parts of digestive tract; Z82.3 Family history of stroke; Z79.01 Long term (current) use of anticoagulants; Y90.4 Blood alcohol level of 80-99 mg/100 ml
CPT/HCPCS: 96376 ×2; 96374; 96375; 99284; 36415; 93306; 80053 ×2; 82465; 83690; 83735 ×2; 84100 ×2; 84484; 85025 ×2; 85610 ×2; 85730 ×2; 80320; 71046; 76705; G0378 ×3; J3411; J1644 ×3; J3475; J3360; C9113

== ENCOUNTER 2023-07-14 16:52 | Emergency (ER) | payer BC ==
[2023-07-14 17:09] VITALS: PULSE 97; TEMP 98.6
--- NOTE | 2023-07-14 18:56 | ED ---
General Adult HPI - General Chief complaint: Upper Respiratory Infection Stated complaint: Vomitting, hand and leg cramps Time Seen by Provider: 07/14/23 17:01 Source: patient, RN notes reviewed Mode of arrival: ambulatory Limitations: no limitations - History of Present Illness Initial comments: 53-year-old male presented to ER with a chief complaint of congestion, cough and muscle cramps. Patient states that been going on for the past week. Patient also was endorsing chills and nausea. He does report a few episodes of vomiting as well. Denies any difficulty breathing, chest pain, fevers, abdominal pain, urinary complaints. - Related Data Home Medications Medication Instructions Recorded Confirmed Naltrexone HCl [Revia] 50 mg PO DAILY 01/02/22 01/02/22 Thiamine [Vitamin B-1] 100 mg PO DAILY 01/02/22 01/02/22 Previous Rx's Medication Instructions Recorded Apixaban [Eliquis] 5 mg PO BID 30 Days #60 tab 01/02/22 Metoprolol Succinate (ER) [Toprol 25 mg PO DAILY #30 tab 01/04/22 XL] Allergies Allergy/AdvReac Type Severity Reaction Status Date / Time No Known Allergies Allergy Verified 01/02/22 06:13 Review of Systems ROS Statement: Those systems with pertinent positive or pertinent negative responses have been documented in the HPI. ROS Other: All systems not noted in ROS Statement are negative. Past Medical History Past Medical History: CVA/TIA, GERD/Reflux, Hypertension Additional Past Medical History / Comment(s): stroke 5 years ago, short term memory loss, tremors History of Any Multi-Drug Resistant Organisms: None Reported Past Surgical History: Cholecystectomy Past Anesthesia/Blood Transfusion Reactions: No Reported Reaction Past Psychological History: No Psychological Hx Reported Smoking Status: Never smoker Past Alcohol Use History: Abuse, Daily, Heavy Past Drug Use History: Marijuana - Past Family History Mother Family Medical History: No Reported History Additional Family Medical History / Comment(s): healthy Father Family Medical History: CVA/TIA Additional Family Medical History / Comment(s): age 55 from stroke General Exam Limitations: no limitations General appearance: alert, in no apparent distress Head exam: Present: atraumatic, normocephalic, normal inspection Eye exam: Present: normal appearance, PERRL, EOMI. Absent: scleral icterus, conjunctival injection, periorbital swelling ENT exam: Present: normal exam, normal oropharynx, mucous membranes moist, TM's normal bilaterally Neck exam: Present: normal inspection. Absent: tenderness, meningismus, lymphadenopathy Respiratory exam: Present: normal lung sounds bilaterally. Absent: respiratory distress, wheezes, rales, rhonchi, stridor Cardiovascular Exam: Present: regular rate, normal rhythm, normal heart sounds. Absent: systolic murmur, diastolic murmur, rubs, gallop, clicks Neurological exam: Present: alert, oriented X3, CN II-XII intact Psychiatric exam: Present: normal affect, normal mood Skin exam: Present: warm, dry, intact, normal color. Absent: rash Course Vital Signs 07/14/23 16:55 Temperature 98.6 F Pulse Rate 97 Respiratory 20 Rate Blood Pressure 183/84 O2 Sat by Pulse 98 Oximetry Medical Decision Making - Medical Decision Making Was pt. sent in by a medical professional or institution (, PA, TREASURY MANAGER, urgent care, hospital, or retirement...) When possible be specific @ -No Did you speak to anyone other than the patient for history (EMS, parent, family, police, friend...)? What history was obtained from this source @ -No Did you review nursing and triage notes (agree or disagree)? Why? @ -I reviewed and agree with nursing and triage notes Were old charts reviewed (outside hosp., previous admission, EMS record, old EKG, old radiological studies, urgent care reports/EKG's, retirement records)? Report findings @ -No old charts were reviewed Differential Diagnosis (chest pain, altered mental status, abdominal pain women, abdominal pain men, vaginal bleeding, weakness, fever, dyspnea, syncope, headache, dizziness, GI bleed, back pain, seizure, CVA, palpatations, mental health, musculoskeletal)? @ -COVID, RSV, influenza, viral sinusitis, pneumonia this list is not meant to be all-inclusive EKG interpreted by me (3pts min.). @ -None X-rays interpreted by me (1pt min.). @ -None done CT interpreted by me (1pt min.). @ -None done U/S interpreted by me (1pt. min.). @ -None done What testing was considered but not performed or refused? (CT, X-rays, U/S, labs)? Why? @ -None What meds were considered but not given or refused? Why? @ -None Did you discuss the management of the patient with other professionals (professionals i.e. , PA, TREASURY MANAGER, lab, RT, psych nurse, social media specialist, bessemer converter blower, teacher, antisubmarine weapons officer, case monitor)? Give summary @ -No Was smoking cessation discussed for >3mins.? @ -No Was critical care preformed (if so, how long)? @ -No Were there social determinants of health that impacted care today? How? (Homelessness, low income, unemployed, alcoholism, drug addiction, transportation, low edu. Level, literacy, decrease access to med. care, skilled nursing, rehab)? @ -No Was there de-escalation of care discussed even if they declined (Discuss DNR or withdrawal of care, Hospice)? DNR status @ -No What co-morbidities impacted this encounter? (DM, HTN, Smoking, COPD, CAD, Cancer, CVA, ARF, Chemo, Hep., AIDS, mental health diagnosis, sleep apnea, morbid obesity)? @ -None Was patient admitted / discharged? Hospital course, mention meds given and route, prescriptions, significant lab abnormalities, going to OR and other pertinent info. @ -Discharge. Patient is a 53-year-old male presented to ER with a chief complaint of congestion, cough, muscle cramps. History and physical exam were completed. Vital stable. Patient no signs of acute distress. Patient resting comfortably in exam chair. COVID, RSV, influenza negative. Findings were discussed with the patient, all questions answered. Advised patient follow-up with PCP in the next 1 to 2 days. Return parameters were discussed. Patient be discharged to a condition with follow-up to PCP. Patient expressed understanding and agreement with care plan. Undiagnosed new problem with uncertain prognosis? @ -No Drug Therapy requiring intensive monitoring for toxicity (Heparin, Nitro, Insulin, Cardizem)? @ -No Were any procedures done? @ -No Diagnosis/symptom? @ - Viral illness Acute, or Chronic, or Acute on Chronic? @ -Acute Uncomplicated (without systemic symptoms) or Complicated (systemic symptoms)? @ -Complicated Side effects of treatment? @ -No Exacerbation, Progression, or Severe Exacerbation? @ -No Poses a threat to life or bodily function? How? (Chest pain, [place], [place], pneumonia, PE, COPD, DKA, ARF, appy, cholecystitis, CVA, Diverticulitis, Homicidal, Suicidal, threat to staff... and all critical care pts) @ -No - Lab Data Lab Results 07/14/23 Range/Units 17:15 Influenza Type A (PCR) Not Detected (Not Detectd) Influenza Type B (PCR) Not Detected (Not Detectd) RSV (PCR) Not Detected (Not Detectd) SARS-CoV-2 (PCR) Not Detected (Not Detectd) Disposition Clinical Impression: Viral infection Disposition: HOME SELF-CARE Condition: Stable Additional Instructions: Please follow-up with PCP in the next 1 to 2 days. Return to the ER for any new or worsening symptoms. Is patient prescribed a controlled substance at d/c from ED?: No Referrals: Ameya Page MD [Primary Care Provider] - 1-2 days Time of Disposition: 18:56
[2023-07-14 19:19] VITALS: BP 148/84; RESP 18
== END 2023-07-14 19:03 | disposition home or self-care (01) ==
LOC: EC 16:52
DX: B34.9 Viral infection, unspecified (principal); I10 Essential (primary) hypertension; F12.90 Cannabis use, unspecified, uncomplicated; Z20.822 Contact with and (suspected) exposure to COVID-19; Z90.49 Acquired absence of other specified parts of digestive tract; Z86.73 Personal history of transient ischemic attack (TIA), and cerebral infarction without residual deficits
CPT/HCPCS: 87636; 99284